=== PATIENT | male | born 1980 | race Caucasian/White ===

== ENCOUNTER 2018-04-17 00:26 | Emergency (ER) | payer SELFPAY ==
[~2018-04-17] VITALS: Ht 172.7 cm; Wt 72.6 kg
--- OUTSIDE RECORDS SUMMARY | 2018-04-17 00:30 | XMS REPORT | Continuity of Care Document ---
Author Author [facility] Address Unknown Phone Unavailable Allergies Active Description Code Type Severity Reaction Onset Reported/Identified Relationship to Patient Clinical Status Yes NO NAME AVAILABLE [id number] DRUG N/ A N/A Yes NKA NKA Drug Allergy N/A N/A Confirmed or Verified Medications There is no data. Problems Date Dx Coded Attending Type Code Diagnosis Diagnosed By 12/02/2015 Afia Vásquez R10.84 Generalized Abdominal Pain 04/28/2016 ADOLPH PALACIOS V [id number] Rash ADOLPH PALACIOS 04/28/2016 ADOLPH PALACIOS V B02.9 Zoster without complications ADOLPH PALACIOS Procedures There is no data. Results There is no data. Encounters ACCT No. Visit Date/Time Discharge Status Pt. Type Provider Facility Loc./Unit Complaint [id number] 04/28/2016 20:25:47 04/28/2016 21:06:00 DIS Emergency ADOLPH PALACIOS [facility] [id number] 11/25/2015 06:57:00 11/25/2015 23:59:59 CLS Emergency Afia Vásquez [facility] ABD pain [id number] 11/25/2015 06:57:00 11/25/2015 09:10:00 DIS Emergency Afia Vásquez [facility] abd pain [id number] 11/25/2015 07:05:00 11/25/2015 07:05:00 CAN Emergency Afia Vásquez [facility] abdominal pain, nausea , vomiting
[2018-04-17] MEDS ORDERED: LACTATED RINGERS 1,000 ML IV ONE (02:10)
[2018-04-17] MEDS ORDERED: SCOPOLAMINE 1.5 MG (TRANSDERM-SCOP) PATCH TD ONE (02:15)
[2018-04-17] MEDS ORDERED: ONDANSETRON 4 MG/2 ML (SDV) Z0FRAN IVP ONE (02:15)
[2018-04-17] MEDS ORDERED: PANTOPRAZOLE 40 MG (PROTONIX) VIAL IV ONE (02:15)
[2018-04-17 02:21] LABS: BASOPHILS % (AUTO) 0 % (0-10); EOSINOPHILS % (AUTO) 0 % (0-10); HEMATOCRIT 43 % (40-54); HEMOGLOBIN 14.6 G/DL (13.3-17.7); LYMPHOCYTES # (AUTO) 2.3 X 10^3 (1.0-4.0); LYMPHOCYTES % (AUTO) 16 % (12-44); MEAN CORPUSCULAR HEMOGLOBIN 32 PG (25-34); MEAN CORPUSCULAR HGB CONC 34 G/DL (32-36); MEAN CORPUSCULAR VOLUME 92 FL (80-99); MEAN PLATELET VOLUME 10.3 FL (7.4-10.4); MONOCYTES # (AUTO) 1.2 X 10^3 (0.0-1.0); MONOCYTES % (AUTO) 8 % (0-12); NEUTROPHILS # (AUTO) 10.7 X 10^3 (1.8-7.8); NEUTROPHILS % (AUTO) 76 % (42-75); PLATELET COUNT 341 10^3/uL (130-400); RED BLOOD COUNT 4.64 10^6/uL (4.35-5.85); WHITE BLOOD COUNT 14.2 10^3/uL (4.3-11.0)
[2018-04-17 02:35] LABS: INR 1.1 (0.8-1.4); PROTHROMBIN TIME PATIENT 13.9 SEC (12.2-14.7)
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
[2018-04-17 02:41] LABS: ALANINE AMINOTRANSFERASE 25 U/L (0-55); ALBUMIN 4.9 GM/DL (3.2-4.5); ALKALINE PHOSPHATASE 59 U/L (40-136); AMYLASE 74 U/L (25-125); BILIRUBIN,TOTAL 1.2 MG/DL (0.1-1.0); BUN/CREATININE RATIO 10; CALCIUM 9.9 MG/DL (8.5-10.1); CARBON DIOXIDE 22 MMOL/L (21-32); CHLORIDE 103 MMOL/L (98-107); CREATININE SERUM 0.81 MG/DL (0.60-1.30); GFR ESTIMATED > 60; GLUCOSE 122 MG/DL (70-105); LIPASE 40 U/L (8-78); MAGNESIUM 2.7 MG/DL (1.8-2.4); POTASSIUM 3.5 MMOL/L (3.6-5.0); SODIUM 139 MMOL/L (135-145)
[2018-04-17 02:47] LABS: ACETAMINOPHEN < 10 UG/ML (10-30); LYMPHOCYTES % (MANUAL) 17 %; NEUTROPHILS % (MANUAL) 76 %
[2018-04-17 02:48] LABS: MONOCYTES % (MANUAL) 7 %
[2018-04-17] MEDS ORDERED: IOHEXOL 350 MG/ML 100 ML (OMNIPAQUE 350) VIAL IV ONE (03:30)
[2018-04-17] MEDS ORDERED: NS 250 ML (IVPB) BAG IV ONE (03:30)
[2018-04-17 04:04] LABS: BILIRUBIN,URINE NEGATIVE (NEGATIVE); CLARITY,URINE CLEAR; COLOR,URINE YELLOW; GLUCOSE, URINE (UA) NEGATIVE (NEGATIVE); KETONES,URINE 4+ (NEGATIVE); LEUKOCYTE ESTERASE ,URINE NEGATIVE (NEGATIVE); NITRITE,URINE NEGATIVE (NEGATIVE); PH,URINE 8 (5-9); PROTEIN,URINE 1+ (NEGATIVE); UROBILINOGEN,URINE NORMAL (NORMAL)
[2018-04-17 04:11] LABS: AMORPHOUS SEDIMENT,UR FEW AMOR PHOSPHATE /LPF; BACTERIA,URINE FEW /HPF; SQUAMOUS EPITHELIAL CELL,UR 0-2 /HPF
[2018-04-17 04:14] LABS: AMPHETAMINE SCREEN, URINE NEGATIVE (NEGATIVE); BARBITURATE SCREEN URINE NEGATIVE (NEGATIVE); BENZODIAZEPINES SCREEN URINE NEGATIVE (NEGATIVE); CANNABINOID SCREEN, URINE POSITIVE (NEGATIVE); COCAINE SCREEN URINE POSITIVE (NEGATIVE); METHADONE STAT NEGATIVE (NEGATIVE); METHAMPHETAMINE SCREEN URINE S NEGATIVE (NEGATIVE); OPIATE SCREEN URINE NEGATIVE (NEGATIVE); OXYCODONE STAT NEGATIVE (NEGATIVE); PROPOXYPHENE STAT NEGATIVE (NEGATIVE); TRICYCLIC ANTIDEPRESSANTS SCRE NEGATIVE (NEGATIVE)
[2018-04-17 04:20] VITALS: BP 131/79
--- NOTE | 2018-04-17 07:20 | Diagnostic Imaging Report ---
PROCEDURE: CT abdomen and pelvis with contrast. TECHNIQUE: Multiple contiguous axial images were obtained through the abdomen and pelvis after administration of intravenous contrast. INDICATION: Abdominal pain with nausea and vomiting. History of a cholecystectomy. EXAMINATION: CT abdomen and pelvis with contrast 04/17/2018. COMPARISON: None. FINDINGS: Mild fatty infiltration throughout the liver is noted. No focal masses or lesions appreciated. There is evidence of a previous cholecystectomy. The spleen and pancreas are unremarkable. The adrenal glands unremarkable. The kidneys demonstrate no acute disease. Mild prominence of the distal esophagus most likely on the basis of a very small hiatal hernia. There is no free fluid in the abdomen. No free air. Within the pelvis free fluid is noted which is of uncertain etiology. This is abnormal in a male and clinical correlation and followup recommended. The appendix is unremarkable without surrounding inflammatory change appreciated. A few clips are noted within the mid lower abdomen. There is no focal inflammatory change about the bowel loops although there is minimal wall thickening throughout the descending colon and sigmoid. Most likely this is due to underdistention although a focal colitis is also in the differential correlate with symptoms. No free fluid seen in the abdomen nor pelvis. No acute osseous abnormalities appreciated. The visualized lung bases demonstrate a small nodularity in the periphery of the left lung base pleural-based and nonspecific. This is approximately 6.5 mm in size. A short-term interval followup in approximately 3 months could be performed to assure stability especially in patient, who has smoking history. IMPRESSION: 1. Free fluid in pelvis which is nonspecific finding, correlate clinically. Questionable mild wall thickening along the colon on the left as described which is most likely on the basis of underdistention however a focal nonspecific colitis is also in the differential, correlate with symptoms. 2. Remaining abdomen and pelvis demonstrates incidental findings as discussed above. 3. Small nodule in the visualized left lung base followup as noted above. Pertinent findings agree with the preliminary report. Dictated by: Dictated on workstation # [id number]
== END 2018-04-17 04:20 | disposition home or self-care (01) ==
LOC: ER 00:27
DX: R10.84 Generalized abdominal pain (principal); G89.29 Other chronic pain; R11.2 Nausea with vomiting, unspecified; F14.10 Cocaine abuse, uncomplicated; F12.10 Cannabis abuse, uncomplicated; F10.10 Alcohol abuse, uncomplicated; F17.210 Nicotine dependence, cigarettes, uncomplicated
CPT/HCPCS: 36415; 74177; 80053; 80306; 80320; 80329; 81000; 82150; 83690; 83735; 85007; 85027; 85610; 85730; 93005; 93041

== ENCOUNTER 2018-12-16 02:10 | Emergency (ER) | payer OTHER ==
[~2018-12-16] VITALS: Ht 172.7 cm; Wt 70.3 kg
[2018-12-16 02:34] VITALS: BP 126/86
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
== END 2018-12-16 02:40 ==
LOC: EDUNIT# 02:10 → ER FS 02:13
DX: S81.011A Laceration without foreign body, right knee, initial encounter (principal); S80.212A Abrasion, left knee, initial encounter; S40.812A Abrasion of left upper arm, initial encounter; R40.2142 Coma scale, eyes open, spontaneous, at arrival to emergency department; R40.2252 Coma scale, best verbal response, oriented, at arrival to emergency department; R40.2362 Coma scale, best motor response, obeys commands, at arrival to emergency department; F12.10 Cannabis abuse, uncomplicated; F14.10 Cocaine abuse, uncomplicated; F17.210 Nicotine dependence, cigarettes, uncomplicated; W01.0XXA Fall on same level from slipping, tripping and stumbling without subsequent striking against object, initial encounter

== ENCOUNTER 2021-07-01 16:14 | Emergency (ER) | payer SELFPAY ==
--- OUTSIDE RECORDS SUMMARY | 2021-07-01 16:20 | XMS REPORT | Clinical Summary ---
Author Author [facility] Address Unknown Phone Unavailable Care Team Providers Care Salvager Name Role Phone PP Unavailable Allergies Not on File Medications Not on file Active Problems Not on file Social History Date Tobacco Use Types Packs/Day Years Used Never Assessed Sex Assigned at Date Recorded Not on file Plan of Treatment Not on file Results Not on filefrom Last 3 Months
--- OUTSIDE RECORDS SUMMARY | 2021-07-01 16:20 | XMS REPORT | Clinical Summary ---
Author Author [facility] Organization [facility] Address Unknown Phone Unavailable Care Team Providers Care Vice President Safety Name Role Phone Jose Weiss MD Unavailable No Pcp, Na PCP Unavailable Lisa Tom RN Unavailable Unavailable Simona Grayson RN Unavailable Unavailable Pieter Yip MD Unavailable Unavailable Leonor Linn RN Unavailable Unavailable Pieter Gordon MD Unavailable Source Comments Some departments are not documenting in the electronic medical record. If you d o not see the information that you expected, contact Release of Information in [facility] Information Management department at [phone] for further assistan ce in locating additional records.[facility] Allergies No known active allergies Medications End Date Status Medication Sig Dispensed Refills Start Date Active hyoscyamine (LEVSIN) Take 125 mcg 0 0.125 mg tablet by mouth every 4 hours as needed. Active colesevelam(+) (WELCHOL) Take 1,875 mg 0 625 mg tablet by mouth twice daily with meals. Active sucralfate (CARAFATE) 1 Take 1 g by 0 gram tablet mouth four times daily. Active pantoprazole DR Take 20 mg by 0 (PROTONIX) 20 mg tablet mouth twice daily. Active polyethylene glycol 3350 Take 17 g by 0 (MIRALAX) 17 g packet mouth daily. Active ALPRAZolam (XANAX) 0.25 Take 0.25 mg 0 mg tablet by mouth at bedtime as needed. Active ondansetron (ZOFRAN) 4 mg Take 1 Tab by 30 Tab 1 tabletIndications: mouth every 6 4 Abdominal pain in male, hours as Nausea & vomiting needed for Nausea. Active promethazine (PHENERGAN) Insert or 12 Each 2 1 2/02/201 25 mg rectal Apply 1 4 suppositoryIndications: Suppository Abdominal pain in male, to rectal Nausea & vomiting area as directed every 6 hours as needed for Nausea. Active citalopram (CELEXA) 20 mg Take 1 Tab by 30 Tab 5 tabletIndications: mouth daily. 5 Anxiety Active Problems Problem Noted Date Cannabis abuse 09/08/2014 Abdominal pain in male 06/18/2014 Nausea & vomiting 06/18/2014 Surgical History Surgery Date Site/Laterality Comments HX CHOLECYSTECTOMY Social History Date Tobacco Use Types Packs/Day Years Used Current Every Day Smoker 0.5 Comments Alcohol Use Standard Drinks/Week No 0 (1 standard drink = 0.6 o z pure alcohol) Sex Assigned at Date Recorded Not on file Last Filed Vital Signs Reading Time Taken Comments Vital Sign 105/63 09/03/2014 12:34 PM GEOLOGIST [facility] Blood Pressure 71 09/03/2014 12:34 PM GEOLOGIST [facility] Pulse 36.7 C (98 F) 09/03/2014 12:34 PM GEOLOGIST [facility] Temperature 16 09/03/2014 12:34 PM GEOLOGIST [facility] Respiratory Rate 100% 08/22/2014 11:05 AM GEOLOGIST [facility] Oxygen Saturation - - Inhaled Oxygen Concentration 70.8 kg (156 lb) 09/03/2014 12:34 PM GEOLOGIST [facility] Weight 172.7 cm (5' 8") 09/03/2014 12:34 PM GEOLOGIST [facility] Height 23.72 09/03/2014 12:34 PM GEOLOGIST [facility] Body Mass Index Plan of Treatment Health Maintenance Due Date Last Done Comments HIV SCREENING 1995 DTAP/TDAP VACCINES (1 - 1998 Tdap) HEPATITIS C SCREENING 1998 PHYSICAL (COMPREHENSIVE) 1998 EXAM INFLUENZA VACCINE 02/15/2021 Results Not on filefrom Last 3 Months Insurance Type Payer Benefit Subscriber ID Effective Phone Address Plan / Dates Group PPO BCBS CANDICE BCBS CANDICE [id number] 2013-P [phone] [address] [facility] [id number] [place] [address] [phone] Advance Directives Patient Stacker Explanation Type Date Recorded Advance 08/08/2014 1:40 PM Directive/DPOA Care Teams Start Date End Date Vice President Safety Relationship Specialty 07/30/14 No Pcp, Na PCP - General 06/17/14 Jose Weiss MD Internal [address] [address] 08/02/14 Lisa Tom, RN 08/20/14 Simona Grayson, RN 08/28/14 Pieter Yip MD Gastroentero logy 05/05/15 Leonor Linn, RN 08/28/15 Pieter Gordon MD Gastroentero [address] [facility] [address] [place] [address]
--- OUTSIDE RECORDS SUMMARY | 2021-07-01 16:20 | XMS REPORT | Clinical Summary ---
Author Author [facility] Address Unknown Phone Unavailable Care Team Providers Care Oracle Reports Developer Name Role Phone PCP Unavailable Allergies No known active allergies Medications End Date Status Medication Sig Dispensed Refills Start Date Active sucralfate (CARAFATE) 1 G Take 1 g by 0 tablet mouth 4 (four) times daily. Active hydrocodone-acetaminophen Take 1 tablet 20 tablet 0 (NORCO) 5-325 MG by mouth 6 every 6 (six) hours as needed for Moderate Pain. Do not exceed a daily dose of 4 tablets Active Problems Not on file Social History Date Tobacco Use Types Packs/Day Years Used Current Every Day Smoker 1 Comments Alcohol Use Standard Drinks/Week No 0 (1 standard drink = 0.6 o z pure alcohol) Sex Assigned at Date Recorded Not on file Last Filed Vital Signs Reading Time Taken Comments Vital Sign 100/66 04/28/2016 8:09 PM CDT Blood Pressure 82 04/28/2016 8:09 PM CDT Pulse 37.1 C (98.8 F) 04/28/2016 8:09 PM CDT Temperature 18 04/28/2016 8:09 PM CDT Respiratory Rate 98% 04/28/2016 8:09 PM CDT Oxygen Saturation - - Inhaled Oxygen Concentration 70.3 kg (155 lb) 04/28/2016 8:09 PM CDT Weight 172.7 cm (5' 8") 04/28/2016 8:09 PM CDT Height 23.57 04/28/2016 8:09 PM CDT Body Mass Index Plan of Treatment Health Maintenance Due Date Last Done Comments Varicella Vaccines (1 of 1981 2 - 2-dose childhood series) COVID-19 Vaccine (1) 1985 Hepatitis C Screening 1998 DTaP,Tdap,and Td Vaccines 1999 (1 - Tdap) MMR Vaccines-Adult 1999 Influenza Vaccine (#1) 2021 Pneumo-Vaccine: 65+Yrs (1 2045 of 1 - PPSV23) HIB Vaccines Aged Out No longer eligible based on patient's age to complete this topic IPV Vaccines Aged Out No longer eligible based on patient's age to complete this topic Meningococcal Vaccine Aged Out No longer eligib le based on patient's age to complete this topic Pneumo-Vaccine: Peds (0-5 Aged Out No longer el igible based on patient's age to Yrs) & At-Risk Patients complete this topic (6-64 Yrs) Rotavirus Vaccines Aged Out No longer eligible based on patient's age to complete this topic Results Not on filefrom Last 3 Months Advance Directives For more information, please contact: [phone] Patient Safety Analyst Explanation Type Date Recorded Advance Directives and Living Will Power of Personal Chef
--- NOTE | 2021-07-01 16:57 | ED General ---
General Chief Complaint: Cough/Cold/Flu Symptoms Stated Complaint: SOA,CP,CONGESTION Source of Information: Patient History of Present Illness Date Seen by Provider: Jul 01, 2021 Time Seen by Provider: 16:28 Initial Comments 41-year-old male presents with complaints of sinus congestion and drainage. 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 He is unsure if he had inhaled some of that and it was causing issues for him. He also was concerned that the weather changes might be contributing to some sinus congestion and drainage making him not feel well. His cousin was diagnosed with influenza A within the last few days and he has been around that cousin, so he is concerned that he might also have influenza A. He has had some mild nonproductive cough. He quit smoking 43 days ago. He denies any abdominal pain, nausea, vomiting, diarrhea, constipation, pain with urination. He denies fever or chills. He reports just that he feels "crappy" and was not sure if he had pneumonia or influenza or what might be causing his symptoms. Timing/Duration: 1-2 Days Severity: Moderate Associated Systoms: No Chest Pain; Cough; No Diaphoresis, No Fever/Chills; Headaches (Sinus pressure); No Loss of Appetite; Malaise; No Nausea/Vomiting, No Rash, No Seizure, No Shortness of Air, No Syncope, No Weakness Allergies and Home Medications Allergies Coded Allergies: No Known Drug Allergies (Unverified , 04/17/18) Patient Home Medication List Home Medication List Reviewed: Yes Review of Systems Review of Systems Constitutional: see HPI; No chills, No dizziness, No fever EENTM: nose congestion; No ear discharge, No hearing loss, No ear pain, No blurred vision, No hoarseness, No epistaxis, No throat pain Respiratory: cough; No hemoptysis; phlegm; No stridor, No wheezing Cardiovascular: No chest pain, No edema, No palpitations Gastrointestinal: No abdominal pain, No nausea, No vomiting Genitourinary: No decreased output, No dysuria Musculoskeletal: other (Generalized body aches) Skin: No rash Psychiatric/Neurological: Headache (Sinus headache) Hematologic/Lymphatic: Denies Blood Clots Immunological/Allergic: grass allergy, pollen allergy Past Hjhxufd-Fyvmxj-Stqtjt Hx Patient Social History Tobacco Use?: No Smoking Status: Former Smoker (Reports quitting 43 days prior to being seen July 01, 2021) Seasonal Allergies Seasonal Allergies: No Past Medical History Surgeries: Yes Gallbladder Respiratory: No Cardiac: No Neurological: No Genitourinary: No Gastrointestinal: Yes (CHRONIC NAUSEA/VOMITING/ABDOMINAL PAIN ) Musculoskeletal: No Endocrine: No HEENT: No Cancer: No Psychosocial: No Integumentary: No Blood Disorders: No Adverse Reaction/Blood Tranf: No Physical Exam Vital Signs Vital Signs - First Documented 07/01/21 07/01/21 16:14 18:08 Temp 36.9 Pulse 84 Resp 16 B/P (MAP) 131/82 (98) Pulse Ox 98 O2 Delivery Room Air Capillary Refill : Height, Weight, BMI Height: 5'8.00" Weight: 155lbs. oz. [id number]; BMI Method:Stated General Appearance: No Apparent Distress, WD/WN Eyes: Bilateral Eye PERRL, Bilateral Eye EOMI HEENT: PERRL/EOMI, TMs Normal, Moist Mucous Membranes, Pharyngeal Erythema; No Photophobia, No Tonsillar Exudate Neck: Full Range of Motion, Normal Inspection, Non Tender, Supple Respiratory: Chest Non Tender, Lungs Clear, Normal Breath Sounds, No Accessory Muscle Use, No Respiratory Distress Cardiovascular: Regular Rate, Rhythm, Normal Peripheral Pulses Gastrointestinal: Normal Bowel Sounds, No Pulsatile Mass, Non Tender, Soft Rectal: Deferred Back: No CVA Tenderness, No Vertebral Tenderness Extremity: Normal Capillary Refill, Normal Inspection, No Pedal Edema Neurologic/Psychiatric: Alert, Oriented x3, No Motor/Sensory Deficits, psychology intern II- XII Norm as Tested Skin: Normal Color, Warm/Dry Progress/Results/Core Measures Suspected Sepsis SIRS Temperature: Pulse: Respiratory Rate: Laboratory Tests 07/01/21 16:58: White Blood Count 8.3 Blood Pressure / Mean: Laboratory Tests 07/01/21 16:58: Creatinine 0.72, Platelet Count 356, Total Bilirubin 0.2 Results/Orders Lab Results Laboratory Tests Test 07/01/21 16:54 07/01/21 16:58 Range/Units Influenza Type A Antigen NEGATIVE NEGATIVE Influenza Type B Antigen NEGATIVE NEGATIVE White Blood Count 8.3 4.3-11.0 10^3/uL Red Blood Count 4.18 L 4.30-5.52 10^6/uL Hemoglobin 13.4 13.3-17.7 g/dL Hematocrit 39 L 40-54 % Mean Corpuscular Volume 93 80-99 fL Mean Corpuscular Hemoglobin 32 25-34 pg Mean Corpuscular Hemoglobin Concent 35 32-36 g/dL Red Cell Distribution Width 12.2 10.0-14.5 % Platelet Count 356 130-400 10^3/uL Mean Platelet Volume 9.6 9.0-12.2 fL Immature Granulocyte % (Auto) 0 % Neutrophils (%) (Auto) 59 42-75 % Lymphocytes (%) (Auto) 26 12-44 % Monocytes (%) (Auto) 11 0-12 % Eosinophils (%) (Auto) 4 0-10 % Basophils (%) (Auto) 1 0-10 % Neutrophils # (Auto) 4.8 1.8-7.8 X 10^3 Lymphocytes # (Auto) 2.1 1.0-4.0 X 10^3 Monocytes # (Auto) 0.9 0.0-1.0 X 10^3 Eosinophils # (Auto) 0.3 0.0-0.3 10^3/uL Basophils # (Auto) 0.1 0.0-0.1 10^3/uL Immature Granulocyte # (Auto) 0.0 0.0-0.1 10^3/uL Sodium Level 138 135-145 MMOL/L Potassium Level 4.0 3.6-5.0 MMOL/L Chloride Level 103 98-107 MMOL/L Carbon Dioxide Level 26 21-32 MMOL/L Anion Gap 9 5-14 MMOL/L Blood Urea Nitrogen 9 7-18 MG/DL Creatinine 0.72 0.60-1.30 MG/DL Estimat Glomerular Filtration Rate 120 BUN/Creatinine Ratio 13 Glucose Level 102 70-105 MG/DL Calcium Level 8.9 8.5-10.1 MG/DL Corrected Calcium 8.7 8.5-10.1 MG/DL Total Bilirubin 0.2 0.1-1.0 MG/DL Aspartate Amino Transf (AST/SGOT) 18 5-34 U/L Alanine Aminotransferase (ALT/SGPT) 16 0-55 U/L Alkaline Phosphatase 75 40-136 U/L C-Reactive Protein 0.42 <0.50 MG/DL Total Protein 7.3 6.4-8.2 GM/DL Albumin 4.3 3.2-4.5 GM/DL My Orders Orders - CLARENCE DYER MD Ed Iv/Invasive Line Start (07/01/21 16:52) Cbc With Automated Diff (07/01/21 16:52) Comprehensive Metabolic Panel (07/01/21 16:52) Crp Fs (07/01/21 16:52) Ns Iv 1000 Ml (Sodium Chloride 0.9%) (07/01/21 17:00) Covid 19 Inhouse Test (07/01/21 16:52) Influenza A & B Antigens (07/01/21 16:52) Chest 1 View Ap/Pa Only (07/01/21 16:52) Vital Signs/I&O 07/01/21 07/01/21 16:14 18:08 Temp 36.9 36.9 Pulse 84 83 Resp 16 16 B/P (MAP) 131/82 (98) 123/78 Pulse Ox 98 100 O2 Delivery Room Air Capillary Refill : Progress Note #1: Progress Note Obtain basic labs as well as chest x-ray and swab for influenza and Covid. Try giving IV fluids for hydration to see if that helps him feel little bit better. Progress Note #2: Progress Note Chest x-ray does not show any acute process. His influenza swab was negative. His labs are stable without acute significant abnormality to account for his symptoms. Encouraged to continue pushing fluids and hydration. Counseled on symptomatic treatment for sinus congestion and pressure. Advised to use humidifier at the bedside while sleeping, Mucinex to help loosen congestion and help with drainage. Advised that the Covid swab would take at least 12 to 24 hours to come back and he should be off work until Tuesday so he has time to get the results of the swab. If it does come back positive he should be off until the . Diagnostic Imaging Diagonstic Imaging: Xray Plain Films/CT/US/NM/MRI: chest Comments [facility] [place], [place] NAME: BELA PIRES Bartolo [facility] REC#: [id number] PT STATUS: REG ER : 1980 PHYSICIAN: CLARENCE DYER MD ADMIT DATE: 07/01/21/ER FS Signed Date of Exam:07/01/21 CHEST 1 VIEW AP/PA ONLY EXAMINATION: Chest 1 view HISTORY: Cough. COMPARISON: None available. FINDINGS: The lung volumes are normal. No focal consolidation is seen. No large pleural effusion or pneumothorax is seen. The cardiomediastinal silhouette is normal in size and contour. No acute osseous abnormality is seen. IMPRESSION: 1. No acute pleuroparenchymal process. Dictated by: Dictated on workstation # [id number] Dict: 07/01/21 1709 Trans: 07/01/211712 CV [id number] Interpreted by: DUARTE ALGERIA DO Electronically signed by: DUARTE ALEGRIA DO 07/01/21 1713 Reviewed: Reviewed by Me Departure Impression Primary Impression: Upper respiratory infection with cough and congestion Additional Impression: Person under investigation for COVID-19 Disposition: 01 HOME, SELF-CARE Condition: Stable Departure-Patient Inst. Decision time for Depature: 17:50 Referrals: NO,LOCAL PHYSICIAN (PCP) Primary Care Physician [facility] Patient Instructions: COVID-19 ED, Upper Respiratory Infection ED Add. Discharge Instructions: You should quarantine and stay isolated until the results of your Covid test are known. This can take up to 24 hours. If your test comes back positive you should stay in quarantine for 10 days. If it is negative then you should stay in quarantine until your symptoms have resolved. Push fluids and stay well-hydrated. Use acetaminophen and ibuprofen if needed for body aches and pain. You could call the [facility] clinic at [phone] to get established with a primary care provider for follow up All discharge instructions reviewed with patient and/or family. Voiced understanding. Work/School Note: Work Release Form Date Seen in the Emergency Department: Jul 01, 2021 Return to Work: Jul 03, 2021 Restrictions: Return-No Fever (24hrs) Other Restrictions Listed Below: If Covid Neg. return Jul 03, if Pos. return Jul 13 CLARENCE DYER MD Jul 01, 2021 16:57
[2021-07-01] MEDS ORDERED: NS IV 1000 ML 1,000 ML IV SCH (17:00)
[2021-07-01 17:06] LABS: WHITE BLOOD COUNT 8.3 10^3/uL (4.3-11.0)
[2021-07-01 17:07] LABS: BASOPHILS % (AUTO) 1 % (0-10); EOSINOPHILS % (AUTO) 4 % (0-10); HEMATOCRIT 39 % (40-54); HEMOGLOBIN 13.4 g/dL (13.3-17.7); LYMPHOCYTES # (AUTO) 2.1 X 10^3 (1.0-4.0); LYMPHOCYTES % (AUTO) 26 % (12-44); MEAN CORPUSCULAR HEMOGLOBIN 32 pg (25-34); MEAN CORPUSCULAR HGB CONC 35 g/dL (32-36); MEAN CORPUSCULAR VOLUME 93 fL (80-99); MEAN PLATELET VOLUME 9.6 fL (9.0-12.2); MONOCYTES # (AUTO) 0.9 X 10^3 (0.0-1.0); MONOCYTES % (AUTO) 11 % (0-12); NEUTROPHILS # (AUTO) 4.8 X 10^3 (1.8-7.8); NEUTROPHILS % (AUTO) 59 % (42-75); PLATELET COUNT 356 10^3/uL (130-400)
[2021-07-01 17:08] LABS: BASOPHILS # (AUTO) 0.1 10^3/uL (0.0-0.1); EOSINOPHILS # (AUTO) 0.3 10^3/uL (0.0-0.3)
--- NOTE | 2021-07-01 17:10 | Diagnostic Imaging Report ---
EXAMINATION: Chest 1 view HISTORY: Cough. COMPARISON: None available. FINDINGS: The lung volumes are normal. No focal consolidation is seen. No large pleural effusion or pneumothorax is seen. The cardiomediastinal silhouette is normal in size and contour. No acute osseous abnormality is seen. IMPRESSION: 1. No acute pleuroparenchymal process. Dictated by: Dictated on workstation # [id number]
[2021-07-01 17:26] LABS: CREATININE SERUM 0.72 MG/DL (0.60-1.30)
[2021-07-01 17:27] LABS: ALBUMIN 4.3 GM/DL (3.2-4.5); BILIRUBIN,TOTAL 0.2 MG/DL (0.1-1.0); CALCIUM 8.9 MG/DL (8.5-10.1); TOTAL PROTEIN 7.3 GM/DL (6.4-8.2)
[2021-07-01 18:08] VITALS: BP 123/78
== END 2021-07-01 18:10 | disposition home or self-care (01) ==
LOC: EDUNIT# 16:14 → ER FS 16:15
DX: J06.9 Acute upper respiratory infection, unspecified (principal); Z20.822 Contact with and (suspected) exposure to COVID-19; Z87.891 Personal history of nicotine dependence
CPT/HCPCS: 36415; 71045; 80053; 85025; 86141; 87636; 87804

== ENCOUNTER 2023-04-22 14:41 | Emergency (ER) | payer SELFPAY ==
[2023-04-22 14:50] VITALS: BP 132/94
[2023-04-22] MEDS ORDERED: ONDANSETRON INJECTION 4 MG/2 ML (SDV) ONE ×2 (14:58→15:02)
[2023-04-22] MEDS ORDERED: NS IV 1000 ML 1,000 ML ONE (14:58)
[2023-04-22] MEDS ORDERED: NS IV 1000 ML 1,000 ML IV SCH ×2 (15:00→15:30)
[2023-04-22] MEDS ORDERED: ONDANSETRON INJECTION 4 MG/2 ML (SDV) IVP ONE (15:00)
[2023-04-22 15:03] LABS: BASOPHILS # (AUTO) 0.1 10^3/uL (0.0-0.1); BASOPHILS % (AUTO) 1 % (0-10); EOSINOPHILS # (AUTO) 0.2 10^3/uL (0.0-0.3); EOSINOPHILS % (AUTO) 1 % (0-10); HEMATOCRIT 47 % (40-54); HEMOGLOBIN 16.1 g/dL (13.3-17.7); LYMPHOCYTES # (AUTO) 3.6 10^3/uL (1.0-4.0); LYMPHOCYTES % (AUTO) 19 % (12-44); MEAN CORPUSCULAR HEMOGLOBIN 31 pg (25-34); MEAN CORPUSCULAR HGB CONC 34 g/dL (32-36); MEAN CORPUSCULAR VOLUME 91 fL (80-99); MEAN PLATELET VOLUME 10.2 fL (9.0-12.2); MONOCYTES % (AUTO) 5 % (0-12); NEUTROPHILS # (AUTO) 14.3 10^3/uL (1.8-7.8); NEUTROPHILS % (AUTO) 75 % (42-75); PLATELET COUNT 422 10^3/uL (130-400); WHITE BLOOD COUNT 19.2 10^3/uL (4.3-11.0)
[2023-04-22 15:18] LABS: ALANINE AMINOTRANSFERASE 42 U/L (0-55); ALBUMIN 5.6 GM/DL (3.2-4.5); ALKALINE PHOSPHATASE 123 U/L (40-136); BILIRUBIN,TOTAL 0.4 MG/DL (0.1-1.0); BUN/CREATININE RATIO 9; CARBON DIOXIDE 19 MMOL/L (21-32); CHLORIDE 105 MMOL/L (98-107); CREATININE SERUM 0.87 MG/DL (0.60-1.30); GFR ESTIMATED 110; GLUCOSE 149 MG/DL (70-105); LIPASE 39 U/L (8-78); POTASSIUM 3.6 MMOL/L (3.6-5.0); SODIUM 145 MMOL/L (135-145); TOTAL PROTEIN 9.2 GM/DL (6.4-8.2)
[2023-04-22] MEDS ORDERED: fentaNYL INJECTION 100 MCG/2 ML VIAL IVP ONE (15:30)
[2023-04-22 15:45] LABS: MAGNESIUM 2.3 MG/DL (1.6-2.4)
--- NOTE | 2023-04-22 16:06 | Diagnostic Imaging Report ---
PROCEDURE: CT abdomen and pelvis without contrast. TECHNIQUE: Multiple contiguous axial images were obtained through the abdomen and pelvis without the use of intravenous contrast. Auto Exposure Controls were utilized during the CT exam to meet ALARA standards for radiation dose reduction. INDICATION: Vomiting. COMPARISON: Correlation is made with prior CT from 04/17/2018. FINDINGS: Lung bases are clear. The liver is unremarkable apart from a tiny low-attenuation lesion in the left lobe, too small to characterize. The gallbladder is surgically absent. There is no biliary ductal dilatation. Pancreas and spleen are unremarkable. No adrenal mass is detected. Kidneys are without calculi or hydronephrosis. Aorta is nonaneurysmal. The small and large bowel loops are normal in caliber. Appendix is unremarkable. No free fluid or fluid collection is seen. No inflammatory changes are identified. The bladder and prostate are unremarkable. IMPRESSION: Unremarkable noncontrast CT of the abdomen and pelvis. No acute abnormality is detected. Dictated by: Dictated on workstation # [id number]
[2023-04-22 16:10] LABS: LYMPHOCYTES % (MANUAL) 21 %; MONOCYTES % (MANUAL) 1 %; NEUTROPHILS % (MANUAL) 78 %
[2023-04-22 16:56] LABS: HEMATOCRIT 42 % (40-54); HEMOGLOBIN 13.9 g/dL (13.3-17.7); MEAN CORPUSCULAR HEMOGLOBIN 31 pg (25-34); MEAN CORPUSCULAR HGB CONC 33 g/dL (32-36); MEAN CORPUSCULAR VOLUME 94 fL (80-99); MEAN PLATELET VOLUME 10.4 fL (9.0-12.2); PLATELET COUNT 311 10^3/uL (130-400); WHITE BLOOD COUNT 24.4 10^3/uL (4.3-11.0)
[2023-04-22 16:59] LABS: BILIRUBIN,URINE NEGATIVE (NEGATIVE); CLARITY,URINE CLEAR; COLOR,URINE YELLOW; GLUCOSE, URINE (UA) NEGATIVE (NEGATIVE); KETONES,URINE 1+ (NEGATIVE); LEUKOCYTE ESTERASE ,URINE NEGATIVE (NEGATIVE); NITRITE,URINE NEGATIVE (NEGATIVE); PH,URINE 8.5 (5-9); PROTEIN,URINE TRACE (NEGATIVE)
[2023-04-22] MEDS ORDERED: PROCHLORPERAZINE INJ 10 MG/2ML VIAL IV ONE (17:00)
[2023-04-22 17:03] LABS: BACTERIA,URINE LARGE /HPF
--- NOTE | 2023-04-22 17:09 | ED GI ---
General Chief Complaint: Abdominal/GI Problems Stated Complaint: VOMITING; FEVER Nursing Triage Note: PT REPORTS HE STARTED VIOLENTLY VOMITING AFTER SMOKING MARIJUANA. HE HAD QUIT SMOKING BUT TRIED IT TODAY AGAIN BECAUSE HE USED TO GET SICK FROM IT IN THE PAST. Source of Information: Patient, Family, RN Notes Reviewed History of Present Illness Date Seen by Provider: Apr 22, 2023 Time Seen by Provider: 14:54 Initial Comments 43-year-old male patient with history of marijuana induced vomiting presented POV with complaining of episode of nausea and vomiting since this morning. Patient stated he had 7 episodes of nonbloody vomiting since this morning and complaining of epigastric sharp pain and rated his pain 10/10. Patient complaining of chills and decrease of urine output Patient denies diarrhea, decrease of urine output, sick contact, chest pain and shortness of breath, sick contact. Patient stated he used to get episodes of vomiting with using marijuana and quit using marijuana but today started using marijuana again and had episodes of vomiting. Patient is anxious. Allergies and Home Medications Allergies Coded Allergies: No Known Drug Allergies (Unverified , 04/17/18) Patient Home Medication List Home Medication List Reviewed: Yes Review of Systems Review of Systems Constitutional: see HPI EENTM: No Symptoms Reported Respiratory: No Symptoms Reported Cardiovascular: No Symptoms Reported Gastrointestinal: See HPI Genitourinary: No Symptoms Reported Musculoskeletal: no symptoms reported Skin: no symptoms reported Psychiatric/Neurological: See HPI Endocrine: No Symptoms Reported Hematologic/Lymphatic: No Symptoms Reported All Other Systems Reviewed Negative Unless Noted: Yes Past Eoyijpa-Ucahwq-Hennws Hx Patient Social History Tobacco Use?: Yes Tobacco type used: Cigarettes Smoking Status: Current Everyday Smoker Use of E-Cig and/or Vaping dev: No Substance use?: Yes Substance type: Marijuana Alcohol Use?: No Pt feels they are or have been: No Immunizations Up To Date Influenza Vaccine Up-to-Date: No; Not Current First/Initial COVID19 Vaccinat: Not currently vaccinated Second COVID19 Vaccination Koko: Not currently vaccinated Third COVID19 Vaccination Date: Not currently vaccinated Seasonal Allergies Seasonal Allergies: No Past Medical History Surgery/Hospitalization HX: Preeti Surgeries: Yes Gallbladder Respiratory: No Cardiac: No Neurological: No Genitourinary: No Gastrointestinal: Yes (CHRONIC NAUSEA/VOMITING/ABDOMINAL PAIN ) Musculoskeletal: No Endocrine: No HEENT: No Cancer: No Psychosocial: No Integumentary: No Blood Disorders: No Adverse Reaction/Blood Tranf: No Physical Exam Vital Signs Vital Signs - First Documented 04/22/23 14:50 Temp 36.3 Pulse 73 Resp 22 B/P (MAP) 132/94 (107) Pulse Ox 100 O2 Delivery Room Air Capillary Refill : Less Than 3 Seconds Height/Weight/BMI Height: 5'8.00" Weight: 155lbs. oz. [id number]; BMI Method:Stated General Appearance: mild distress (Very anxious) HEENT: PERRL/EOMI, normal ENT inspection, other (Dry oral mucosa) Neck: non-tender, full range of motion Respiratory: chest non-tender, lungs clear, normal breath sounds, no respiratory distress Cardiovascular: regular rate, rhythm, no edema, no gallop Gastrointestinal: normal bowel sounds, non tender, soft, no organomegaly Extremities: normal range of motion, non-tender, normal inspection Back: normal inspection, no CVA tenderness Neurologic/Psychiatric: alert, oriented x 3, other (Anxious) Skin: normal color Lymphatic: no adenopathy Focused Exam Lactate Level 04/22/23 15:30: Lactic Acid Level 2.44*H 04/22/23 16:56: Lactic Acid Level 2.11*H Lactic Acid Level Laboratory Tests Test 04/22/23 15:30 04/22/23 16:56 Lactic Acid Level 2.44 MMOL/L (0.50-2.00) *H 2.11 MMOL/L (0.50-2.00) *H Progress/Results/Core Measures Results/Orders Lab Results Laboratory Tests Test 04/22/23 14:52 04/22/23 15:30 04/22/23 16:56 Range/Units White Blood Count 19.2 H 24.4 H 4.3-11.0 10^3/uL Red Blood Count 5.18 4.45 4.30-5.52 10^6/uL Hemoglobin 16.1 13.9 13.3-17.7 g/dL Hematocrit 47 42 40-54 % Mean Corpuscular Volume 91 94 80-99 fL Mean Corpuscular Hemoglobin 31 31 25-34 pg Mean Corpuscular Hemoglobin Concent 34 33 32-36 g/dL Red Cell Distribution Width 12.6 12.7 10.0-14.5 % Platelet Count 422 H 311 130-400 10^3/uL Mean Platelet Volume 10.2 10.4 9.0-12.2 fL Immature Granulocyte % (Auto) 0 % Neutrophils (%) (Auto) 75 42-75 % Lymphocytes (%) (Auto) 19 12-44 % Monocytes (%) (Auto) 5 0-12 % Eosinophils (%) (Auto) 1 0-10 % Basophils (%) (Auto) 1 0-10 % Neutrophils # (Auto) 14.3 H 1.8-7.8 10^3/uL Lymphocytes # (Auto) 3.6 1.0-4.0 10^3/uL Monocytes # (Auto) 1.0 0.0-1.0 10^3/uL Eosinophils # (Auto) 0.2 0.0-0.3 10^3/uL Basophils # (Auto) 0.1 0.0-0.1 10^3/uL Immature Granulocyte # (Auto) 0.1 0.0-0.1 10^3/uL Neutrophils % (Manual) 78 % Lymphocytes % (Manual) 21 % Monocytes % (Manual) 1 % Sodium Level 145 135-145 MMOL/L Potassium Level 3.6 3.6-5.0 MMOL/L Chloride Level 105 98-107 MMOL/L Carbon Dioxide Level 19 L 21-32 MMOL/L Anion Gap 21 H 5-14 MMOL/L Blood Urea Nitrogen 8 7-18 MG/DL Creatinine 0.87 0.60-1.30 MG/DL Estimat Glomerular Filtration Rate 110 BUN/Creatinine Ratio 9 Glucose Level 149 H 70-105 MG/DL Calcium Level 11.0 H 8.5-10.1 MG/DL Corrected Calcium 8.5-10.1 MG/DL Magnesium Level 2.3 1.6-2.4 MG/DL Total Bilirubin 0.4 0.1-1.0 MG/DL Aspartate Amino Transf (AST/SGOT) 27 5-34 U/L Alanine Aminotransferase (ALT/SGPT) 42 0-55 U/L Alkaline Phosphatase 123 40-136 U/L Troponin I < 0.30 <0.30 NG/ML Total Protein 9.2 H 6.4-8.2 GM/DL Albumin 5.6 H 3.2-4.5 GM/DL Lipase 39 8-78 U/L Lactic Acid Level 2.44 *H 2.11 *H 0.50-2.00 MMOL/L Urine Color YELLOW Urine Clarity CLEAR Urine pH 8.5 5-9 Urine Specific [place] 1.015 L 1.016-1.022 Urine Protein TRACE H NEGATIVE Urine Glucose (UA) NEGATIVE NEGATIVE Urine Ketones 1+ H NEGATIVE Urine Nitrite NEGATIVE NEGATIVE Urine Bilirubin NEGATIVE NEGATIVE Urine Urobilinogen 0.2 < = 1.0 MG/DL Urine Leukocyte Esterase NEGATIVE NEGATIVE Urine RBC (Auto) NEGATIVE NEGATIVE Urine RBC NONE /HPF Urine WBC 5-10 H /HPF Urine Squamous Epithelial Cells NONE /HPF Urine Crystals NONE /LPF Urine Bacteria LARGE H /HPF Urine Casts PRESENT /LPF Urine Hyaline Casts 2-5 H /LPF Urine Mucus LARGE H /LPF Urine Culture Indicated YES Urine Opiates Screen NEGATIVE NEGATIVE Urine Oxycodone Screen NEGATIVE NEGATIVE Urine Methadone Screen NEGATIVE NEGATIVE Urine Propoxyphene Screen NEGATIVE NEGATIVE Urine Barbiturates Screen NEGATIVE NEGATIVE Ur Tricyclic Antidepressants Screen NEGATIVE NEGATIVE Urine Phencyclidine Screen NEGATIVE NEGATIVE Urine Amphetamines Screen NEGATIVE NEGATIVE Urine Methamphetamines Screen NEGATIVE NEGATIVE Urine Benzodiazepines Screen NEGATIVE NEGATIVE Urine Cocaine Screen NEGATIVE NEGATIVE Urine Cannabinoids Screen POSITIVE H NEGATIVE My Orders Orders - DEBRA RABAGO MD Comprehensive Metabolic Panel (04/22/23 14:57) Lipase (04/22/23 14:57) Ua Culture If Indicated (04/22/23 14:57) Ed Iv/Invasive Line Start (04/22/23 14:57) Cbc And Automated Diff (04/22/23 14:57) Drug Screen Stat (Urine) (04/22/23 14:57) Ns Iv 1000 Ml (Ns Iv 1000 Ml) (04/22/23 15:00) Ondansetron Injection (Ondansetron Inj (04/22/23 15:00) Ondansetron Injection (Ondansetron Inj (04/22/23 14:58) Ns Iv 1000 Ml (Ns Iv 1000 Ml) (04/22/23 14:58) Manual Differential (04/22/23 14:52) Ondansetron Injection (Ondansetron Inj (04/22/23 15:02) Lactic Acid Analyzer (04/22/23 15:25) Ct Abdomen/Pelvis Wo (04/22/23 15:25) Magnesium (04/22/23 15:25) Troponin I Fs (04/22/23 15:25) Fentanyl Injection (Fentanyl Injection (04/22/23 15:30) Ns Iv 1000 Ml (Ns Iv 1000 Ml) (04/22/23 15:30) Cbc No Diff (04/22/23 16:48) Lactic Acid Analyzer (04/22/23 16:48) Prochlorperazine Injection (Prochlorpera (04/22/23 17:00) Urine Culture (04/22/23 16:56) Medications Given in ED Current Medications Medications Dose Ordered Sig/Patricio Route Start Time Stop Time Status Last Admin Dose Admin Fentanyl Citrate 50 mcg ONCE ONCE IVP 04/22/23 15:30 04/22/23 15:31 DC 04/22/23 15:49 50 MCG Ondansetron HCl 8 mg ONCE ONCE IVP 04/22/23 15:00 04/22/23 15:01 DC 04/22/23 15:03 8 MG Prochlorperazine Edisylate 10 mg ONCE ONCE IV 04/22/23 17:00 04/22/23 17:01 DC 04/22/23 16:55 10 MG Vital Signs/I&O 04/22/23 14:50 Temp 36.3 Pulse 73 Resp 22 B/P (MAP) 132/94 (107) Pulse Ox 100 O2 Delivery Room Air Blood Pressure Mean: 107 Progress Progress Note : Progress Note Differential diagnosis: Cyclic vomiting syndrome, marijuana induced vomiting, dehydration, electrolyte imbalance, anxiety Patient with history of marijuana induced vomiting presented POV with complaining of 7 episode of vomiting after using marijuana today. Patient had a stable vital sign and exam except for anxiety. CBC, CMP, lactic acid, UA, lipase, UDS was ordered and showed white count of 19,000 and lactic acid of 2.4. Patient treated with 2 L of normal saline, Zofran, Compazine, fentanyl with improvement of his condition. Patient tolerated oral intake. Repeat CBC and lactic acid requested but patient eloped from ER before having the results with IV line in place. Police Department was informed. Departure Impression Primary Impression: Acute gastroenteritis Additional Impressions: Leukocytosis Qualified Codes: D72.829 - Elevated white blood cell count, unspecified UTI (urinary tract infection) Qualified Codes: N39.0 - Urinary tract infection, site not specified Noncompliance Elevated lactic acid level Hypercalcemia Disposition: AGAINST MEDICAL ADVICE (Elped at [address]) Condition: Improved Departure-Patient Inst. Decision time for Depature: 17:00 Referrals: NO,LOCAL PHYSICIAN (PCP/Family) Primary Care Physician DEBRA RABAGO MD Apr 22, 2023 17:09
[2023-04-22 17:12] LABS: AMPHETAMINE SCREEN, URINE NEGATIVE (NEGATIVE); BARBITURATE SCREEN URINE NEGATIVE (NEGATIVE); CANNABINOID SCREEN, URINE POSITIVE (NEGATIVE); COCAINE SCREEN URINE NEGATIVE (NEGATIVE); METHADONE STAT NEGATIVE (NEGATIVE); OPIATE SCREEN URINE NEGATIVE (NEGATIVE); OXYCODONE STAT NEGATIVE (NEGATIVE); PROPOXYPHENE STAT NEGATIVE (NEGATIVE); TRICYCLIC ANTIDEPRESSANTS SCRE NEGATIVE (NEGATIVE)
[2023-04-26] MEDS ORDERED: BISACODYL 10 MG SUPPOSITORY PR PRN (16:00)
[2023-04-26] MEDS ORDERED: NS IV 1000 ML 1,000 ML IV SCH (16:00)
[2023-04-26] MEDS ORDERED: ENOXAPARIN 40 MG/0.4 ML SYRINGE SC SCH (16:00)
[2023-04-26] MEDS ORDERED: ONDANSETRON 4 MG ORAL DISSOLVE TABLET PO PRN (16:00)
[2023-04-26] MEDS ORDERED: ACETAMINOPHEN 325 MG TABLET PO PRN (16:00)
[2023-04-26] MEDS ORDERED: MELATONIN 3 MG TABLET PO PRN (16:00)
[2023-04-26] MEDS ORDERED: METOCLOPRAMIDE INJ 10 MG/2 ML IVP PRN (16:00)
[2023-04-26] MEDS ORDERED: ANTACID SUSPENSION 30 ML UDC PO PRN (16:00)
[2023-04-26] MEDS ORDERED: PROCHLORPERAZINE INJ 10 MG/2ML VIAL IV PRN (16:00)
[2023-04-26] MEDS ORDERED: LACTULOSE SYRUP 10GM/15ML 30ML UDC PO PRN (16:00)
[2023-04-26] MEDS ORDERED: ONDANSETRON INJECTION 4 MG/2 ML (SDV) IV PRN (16:00)
== END 2023-04-22 17:10 | disposition left against medical advice (07) ==
LOC: EDUNIT# 14:41 → ER FS 14:43
DX: K52.9 Noninfective gastroenteritis and colitis, unspecified (principal); N39.0 Urinary tract infection, site not specified; E83.52 Hypercalcemia; R74.02 Elevation of levels of lactic acid dehydrogenase [LDH]; F17.210 Nicotine dependence, cigarettes, uncomplicated; Z91.199 Patient's noncompliance with other medical treatment and regimen due to unspecified reason; Z28.310 Unvaccinated for COVID-19
CPT/HCPCS: 36415; 74176; 80053; 80306; 81000; 83605; 83690; 83735; 84484; 85007; 85027; 87088

== ENCOUNTER 2023-04-26 13:56 | Observation (INO) | payer SELFPAY ==
[~2023-04-26] VITALS: Ht 175 cm; Wt 74.0 kg
[2023-04-26] MEDS ORDERED: METOCLOPRAMIDE INJ 10 MG/2 ML IVP ONE (14:30)
[2023-04-26] MEDS ORDERED: fentaNYL INJECTION 100 MCG/2 ML VIAL IVP ONE (14:30)
[2023-04-26] MEDS ORDERED: NS IV 1000 ML 1,000 ML IV SCH ×2 (14:30→15:30)
[2023-04-26] MEDS ORDERED: PANTOPRAZOLE INJECTION 40 MG VIAL IV ONE (14:30)
--- NOTE | 2023-04-26 14:36 | ED GI ---
General Chief Complaint: Abdominal/GI Problems Stated Complaint: VOMITING Nursing Triage Note: ARRIVED VIA AMB TO ROOM 05. STATES HE WAS DISCHARGED FROM [facility] LAST NIGHT AND STARTED VOMITING AT 0900 TODAY. LAST MARIJUANA USE WAS TUESDAY. Source of Information: Patient, RN Notes Reviewed Exam Limitations: No Limitations History of Present Illness Date Seen by Provider: Apr 26, 2023 Time Seen by Provider: 14:17 Initial Comments 43-year-old male patient brought in by family members because of nausea and vomiting and abdominal pain that started around 9 AM today with more than 10 episodes of nonbloody vomiting and 2 episodes of loose stool. Patient complaining of severe epigastric pain and rated his pain 10/10. Patient denies fever and chills, chest pain and shortness of breath, using marijuana since 6 days ago. Patient has history of marijuana induced nausea and vomiting and was seen in this emergency room on April 22 with complaining of nausea and vomiting and abdominal pain after using marijuana the day before his presentation and had labs and medication but eloped the emergency room without signing AGAINST MEDICAL ADVICE with his IV line in place and is stated he went to [facility] to see and was admitted with diagnosis of acute renal failure and was discharged home last night. Patient had BUN of 8 and creatinine of 0.87 in his previous ER visit with elevation of white count and lactic acid and calcium and unremarkable CT of abdomen and pelvis. Patient is very anxious and has attitude at arrival to ER. Allergies and Home Medications Allergies Coded Allergies: No Known Drug Allergies (Unverified , 04/17/18) Patient Home Medication List Home Medication List Reviewed: Yes Review of Systems Review of Systems Constitutional: see HPI EENTM: No Symptoms Reported Respiratory: No Symptoms Reported Cardiovascular: No Symptoms Reported Gastrointestinal: See HPI Genitourinary: No Symptoms Reported Musculoskeletal: no symptoms reported Skin: no symptoms reported Psychiatric/Neurological: See HPI Endocrine: No Symptoms Reported Hematologic/Lymphatic: No Symptoms Reported All Other Systems Reviewed Negative Unless Noted: Yes Past Gobqnxm-Suyqok-Iptozu Hx Patient Social History Tobacco Use?: Yes Substance use?: Yes Substance type: Marijuana Alcohol Use?: No Immunizations Up To Date First/Initial COVID19 Vaccinat: Not currently vaccinated Second COVID19 Vaccination Koko: Not currently vaccinated Third COVID19 Vaccination Date: Not currently vaccinated Seasonal Allergies Seasonal Allergies: No Past Medical History Surgery/Hospitalization HX: Preeti Surgeries: Yes Gallbladder Respiratory: No Cardiac: No Neurological: No Genitourinary: No Gastrointestinal: Yes (CHRONIC NAUSEA/VOMITING/ABDOMINAL PAIN ) Musculoskeletal: No Endocrine: No HEENT: No Cancer: No Psychosocial: No Integumentary: No Blood Disorders: No Adverse Reaction/Blood Tranf: No Physical Exam Vital Signs Vital Signs - First Documented 04/26/23 14:00 Temp 36.3 Pulse 57 Resp 16 B/P (MAP) 158/94 (115) Pulse Ox 99 O2 Delivery Room Air Capillary Refill : Less Than 3 Seconds Height/Weight/BMI Height: 5'8.00" Weight: 155lbs. oz. [id number]; 23.00 BMI Method:Stated General Appearance: mild distress (Very anxious) HEENT: PERRL/EOMI Neck: non-tender Respiratory: chest non-tender, lungs clear, normal breath sounds, no respiratory distress, no accessory muscle use Cardiovascular: no edema, no gallop, bradycardia Gastrointestinal: normal bowel sounds, soft, no pulsatile mass, guarding (Epigastric) Extremities: normal range of motion Back: normal inspection Neurologic/Psychiatric: alert, oriented x 3 Skin: normal color, warm/dry Lymphatic: no adenopathy Focused Exam Lactate Level 04/26/23 14:25: Lactic Acid Level 3.04*H 04/26/23 16:32: Lactic Acid Level 1.38 Lactic Acid Level Laboratory Tests Test 04/26/23 14:25 04/26/23 16:32 Lactic Acid Level 3.04 MMOL/L (0.50-2.00) *H 1.38 MMOL/L (0.50-2.00) Progress/Results/Core Measures Results/Orders Lab Results Laboratory Tests Test 04/26/23 14:25 04/26/23 15:10 04/26/23 16:32 Range/Units White Blood Count 15.3 H 4.3-11.0 10^3/uL Red Blood Count 4.95 4.30-5.52 10^6/uL Hemoglobin 15.7 13.3-17.7 g/dL Hematocrit 45 40-54 % Mean Corpuscular Volume 90 80-99 fL Mean Corpuscular Hemoglobin 32 25-34 pg Mean Corpuscular Hemoglobin Concent 35 32-36 g/dL Red Cell Distribution Width 12.1 10.0-14.5 % Platelet Count 351 130-400 10^3/uL Mean Platelet Volume 10.6 9.0-12.2 fL Immature Granulocyte % (Auto) 1 % Neutrophils (%) (Auto) 77 H 42-75 % Lymphocytes (%) (Auto) 14 12-44 % Monocytes (%) (Auto) 8 0-12 % Eosinophils (%) (Auto) 0 0-10 % Basophils (%) (Auto) 1 0-10 % Neutrophils # (Auto) 11.8 H 1.8-7.8 10^3/uL Lymphocytes # (Auto) 2.2 1.0-4.0 10^3/uL Monocytes # (Auto) 1.2 H 0.0-1.0 10^3/uL Eosinophils # (Auto) 0.0 0.0-0.3 10^3/uL Basophils # (Auto) 0.1 0.0-0.1 10^3/uL Immature Granulocyte # (Auto) 0.1 0.0-0.1 10^3/uL Neutrophils % (Manual) 72 % Lymphocytes % (Manual) 20 % Monocytes % (Manual) 8 % Platelet Estimate ADEQUATE Blood Morphology Comment NORMAL Sodium Level 133 L 135-145 MMOL/L Potassium Level 3.3 L 3.6-5.0 MMOL/L Chloride Level 95 L 98-107 MMOL/L Carbon Dioxide Level 20 L 21-32 MMOL/L Anion Gap 18 H 5-14 MMOL/L Blood Urea Nitrogen 14 7-18 MG/DL Creatinine 1.10 0.60-1.30 MG/DL Estimat Glomerular Filtration Rate 85 BUN/Creatinine Ratio 13 Glucose Level 132 H 70-105 MG/DL Lactic Acid Level 3.04 *H 1.38 0.50-2.00 MMOL/L Calcium Level 10.6 H 8.5-10.1 MG/DL Corrected Calcium 8.5-10.1 MG/DL Total Bilirubin 1.5 H 0.1-1.0 MG/DL Aspartate Amino Transf (AST/SGOT) 77 H 5-34 U/L Alanine Aminotransferase (ALT/SGPT) 50 0-55 U/L Alkaline Phosphatase 93 40-136 U/L Total Protein 8.5 H 6.4-8.2 GM/DL Albumin 4.9 H 3.2-4.5 GM/DL Lipase 40 8-78 U/L Urine Color DARK YELLOW Urine Clarity CLOUDY Urine pH 6.0 5-9 Urine Specific [place] >=1.030 1.016-1.022 Urine Protein 2+ H NEGATIVE Urine Glucose (UA) NEGATIVE NEGATIVE Urine Ketones TRACE H NEGATIVE Urine Nitrite POSITIVE H NEGATIVE Urine Bilirubin NEGATIVE NEGATIVE Urine Urobilinogen 1.0 < = 1.0 MG/DL Urine Leukocyte Esterase NEGATIVE NEGATIVE Urine RBC (Auto) NEGATIVE NEGATIVE Urine RBC NONE /HPF Urine WBC 0-2 /HPF Urine Squamous Epithelial Cells NONE /HPF Urine Crystals PRESENT H /LPF Urine Calcium Oxalate Crystals FEW H /LPF Urine Amorphous Sediment MOD PREM URATES H /LPF Urine Bacteria LARGE H /HPF Urine Casts PRESENT /LPF Urine Hyaline Casts >50 H /LPF Urine Mucus LARGE H /LPF Urine Culture Indicated YES Urine Opiates Screen NEGATIVE NEGATIVE Urine Oxycodone Screen NEGATIVE NEGATIVE Urine Methadone Screen NEGATIVE NEGATIVE Urine Propoxyphene Screen NEGATIVE NEGATIVE Urine Barbiturates Screen NEGATIVE NEGATIVE Ur Tricyclic Antidepressants Screen NEGATIVE NEGATIVE Urine Phencyclidine Screen NEGATIVE NEGATIVE Urine Amphetamines Screen NEGATIVE NEGATIVE Urine Methamphetamines Screen NEGATIVE NEGATIVE Urine Benzodiazepines Screen NEGATIVE NEGATIVE Urine Cocaine Screen NEGATIVE NEGATIVE Urine Cannabinoids Screen POSITIVE H NEGATIVE My Orders Orders - DEBRA RABAGO MD Comprehensive Metabolic Panel (04/26/23 14:24) Lipase (04/26/23 14:24) Ua Culture If Indicated (04/26/23 14:24) Ed Iv/Invasive Line Start (04/26/23 14:24) Cbc And Automated Diff (04/26/23 14:24) Lactic Acid Analyzer (04/26/23 14:24) Drug Screen Stat (Urine) (04/26/23 14:24) Metoclopramide Injection (Metoclopramide (04/26/23 14:30) Pantoprazole Injection (Pantoprazole Inj (04/26/23 14:30) Fentanyl Injection (Fentanyl Injection (04/26/23 14:30) Ns Iv 1000 Ml (Ns Iv 1000 Ml) (04/26/23 14:30) Manual Differential (04/26/23 14:25) Ns Iv 1000 Ml (Ns Iv 1000 Ml) (04/26/23 15:30) Promethazine Injection (Promethazine I (04/26/23 15:30) Urine Culture (04/26/23 15:10) Ed Admission (Communication) (04/26/23 15:50) Medications Given in ED Current Medications Medications Dose Ordered Sig/Patricio Route Start Time Stop Time Status Last Admin Dose Admin Fentanyl Citrate 50 mcg ONCE ONCE IVP 04/26/23 14:30 04/26/23 14:31 DC 04/26/23 14:33 50 MCG Metoclopramide HCl 10 mg ONCE ONCE IVP 04/26/23 14:30 04/26/23 14:31 DC 04/26/23 14:33 10 MG Pantoprazole 40 mg ONCE ONCE IV 04/26/23 14:30 04/26/23 14:31 DC 04/26/23 14:33 40 MG Promethazine HCl 25 mg ONCE ONCE IVP 04/26/23 15:30 04/26/23 15:31 DC 04/26/23 15:34 25 MG Vital Signs/I&O 04/26/23 04/26/23 14:00 16:44 Temp 36.3 Pulse 57 71 Resp 16 16 B/P (MAP) 158/94 (115) 140/81 Pulse Ox 99 96 O2 Delivery Room Air Room Air Blood Pressure Mean: 115 Progress Progress Note : Progress Note Differential diagnosis: Dehydration, electrolyte imbalance, substance abuse Patient with frequent episodes of nausea and vomiting and epigastric pain with 2 episodes of vomiting while he was in the emergency room after giving IV Reglan and Phenergan. Patient has history of marijuana and use nausea and vomiting and was seen in this emergency room on April 22 but eloped from the ER and according to medical report from [facility] was seen after 28 hours from his emergency room visit and here and admitted with diagnosis of acute renal failure and discharged home last night. Patient was anxious and had attitude at arrival to ER and treated with IV fluid, Reglan, Protonix and fentanyl with improvement of his condition but patient had another episode of vomiting while he was in ER and treated with Phenergan. CBC, CMP, lipase, lactic acid, UA and UDS was ordered and reviewed by me. Patient had white count of 15,000 that dropped from the previous white count of 21,000. Lactic acid was elevated at 3.0 that could be because of hyperventilation. UA showed bacteria and positive nitrates without WBC and antibiotic was not started. CMP showed mild hypokalemia and hyponatremia and hypochloremia with normal BUN and creatinine. Liver enzyme was mildly elevated. Decided to admit patient with diagnosis of intractable nausea and vomiting and patient requested transfer to nearby the hospital. Dr. Nelson on-call hospitalist at [facility] was consulted at 1532 and declined excepting the patient because of lack of GI specialist in the hospital. Patient was informed and decided to get admission [facility]. On-call hospitalist Dr. Vasquez was consulted at 1535 and agreed to observation admission. Patient and his family was updated frequently about test results and plan of care and need for admission and all questions was addressed. Repeat lactic acid was 1.38. Critical Care Note Critical Care Start Time: 14:17 Stop Time: 15:00 Total Time (minutes) 53 Departure Communication (Admissions) Time/Spoke to Admitting Phy: 15:46 Dr. Vasquez was consulted and accepted admission at 1535. Family Conversation Patient and his family informed about plan of care and need for admission. Impression Primary Impression: Intractable nausea and vomiting Additional Impression: Hypokalemia Disposition: 30 STILL A PATIENT Condition: Improved Admissions Decision to Admit Reason: Admit from ER (General) Decision to Admit/Date: Apr 26, 2023 Time/Decision to Admit Time: 15:39 Departure-Patient Inst. Referrals: NO,LOCAL PHYSICIAN (PCP/Family) Primary Care Physician DEBRA RABAGO MD Apr 26, 2023 14:36
[2023-04-26 14:54] LABS: BASOPHILS # (AUTO) 0.1 10^3/uL (0.0-0.1); BASOPHILS % (AUTO) 1 % (0-10); EOSINOPHILS % (AUTO) 0 % (0-10); HEMATOCRIT 45 % (40-54); HEMOGLOBIN 15.7 g/dL (13.3-17.7); LYMPHOCYTES # (AUTO) 2.2 10^3/uL (1.0-4.0); LYMPHOCYTES % (AUTO) 14 % (12-44); MEAN CORPUSCULAR HEMOGLOBIN 32 pg (25-34); MEAN CORPUSCULAR HGB CONC 35 g/dL (32-36); MEAN CORPUSCULAR VOLUME 90 fL (80-99); MEAN PLATELET VOLUME 10.6 fL (9.0-12.2); MONOCYTES # (AUTO) 1.2 10^3/uL (0.0-1.0); MONOCYTES % (AUTO) 8 % (0-12); NEUTROPHILS # (AUTO) 11.8 10^3/uL (1.8-7.8); NEUTROPHILS % (AUTO) 77 % (42-75); PLATELET COUNT 351 10^3/uL (130-400); WHITE BLOOD COUNT 15.3 10^3/uL (4.3-11.0)
[2023-04-26 15:10] LABS: LYMPHOCYTES % (MANUAL) 20 %; MONOCYTES % (MANUAL) 8 %; NEUTROPHILS % (MANUAL) 72 %; PLATELET ESTIMATE ADEQUATE; RBC MORPH NORMAL
[2023-04-26 15:15] LABS: BUN/CREATININE RATIO 13; CARBON DIOXIDE 20 MMOL/L (21-32); CHLORIDE 95 MMOL/L (98-107); GFR ESTIMATED 85; POTASSIUM 3.3 MMOL/L (3.6-5.0); SODIUM 133 MMOL/L (135-145)
[2023-04-26 15:16] LABS: ALANINE AMINOTRANSFERASE 50 U/L (0-55); ALBUMIN 4.9 GM/DL (3.2-4.5); ALKALINE PHOSPHATASE 93 U/L (40-136); BILIRUBIN,TOTAL 1.5 MG/DL (0.1-1.0); CALCIUM 10.6 MG/DL (8.5-10.1); GLUCOSE 132 MG/DL (70-105); LIPASE 40 U/L (8-78); TOTAL PROTEIN 8.5 GM/DL (6.4-8.2)
[2023-04-26 15:17] LABS: BILIRUBIN,URINE NEGATIVE (NEGATIVE); CLARITY,URINE CLOUDY; GLUCOSE, URINE (UA) NEGATIVE (NEGATIVE); KETONES,URINE TRACE (NEGATIVE); LEUKOCYTE ESTERASE ,URINE NEGATIVE (NEGATIVE); NITRITE,URINE POSITIVE (NEGATIVE); PROTEIN,URINE 2+ (NEGATIVE)
[2023-04-26 15:28] LABS: BACTERIA,URINE LARGE /HPF; COLOR,URINE DARK YELLOW; WBC,URINE 0-2 /HPF
[2023-04-26 15:29] LABS: AMORPHOUS SEDIMENT,UR MOD AMOR URATES /LPF; CALCIUM OXALATE CRYSTALS,UR FEW /LPF
[2023-04-26 15:30] LABS: HYALINE CASTS, URINE >50 /LPF
[2023-04-26] MEDS ORDERED: PROMETHAZINE INJ 25 MG/ML VIAL IVP ONE (15:30)
[2023-04-26 15:32] LABS: AMPHETAMINE SCREEN, URINE NEGATIVE (NEGATIVE); BARBITURATE SCREEN URINE NEGATIVE (NEGATIVE); CANNABINOID SCREEN, URINE POSITIVE (NEGATIVE); COCAINE SCREEN URINE NEGATIVE (NEGATIVE); METHADONE STAT NEGATIVE (NEGATIVE); OPIATE SCREEN URINE NEGATIVE (NEGATIVE); OXYCODONE STAT NEGATIVE (NEGATIVE); PROPOXYPHENE STAT NEGATIVE (NEGATIVE); TRICYCLIC ANTIDEPRESSANTS SCRE NEGATIVE (NEGATIVE)
[2023-04-26 17:45] VITALS: BP 135/76
[2023-04-26] MEDS ORDERED: ONDANSETRON 4 MG ORAL DISSOLVE TABLET PO PRN (18:00)
[2023-04-26] MEDS ORDERED: LACTULOSE SYRUP 10GM/15ML 30ML UDC PO PRN (18:00)
[2023-04-26] MEDS ORDERED: MELATONIN 3 MG TABLET PO PRN (18:00)
[2023-04-26] MEDS ORDERED: ACETAMINOPHEN 325 MG TABLET PO PRN ×2 (18:00→22:00)
[2023-04-26] MEDS ORDERED: PROCHLORPERAZINE INJ 10 MG/2ML VIAL IV PRN (18:00)
[2023-04-26] MEDS ORDERED: ANTACID SUSPENSION 30 ML UDC PO PRN (18:00)
[2023-04-26] MEDS ORDERED: ENOXAPARIN 40 MG/0.4 ML SYRINGE SC SCH (18:00)
[2023-04-26] MEDS ORDERED: BISACODYL 10 MG SUPPOSITORY PR PRN (18:00)
[2023-04-26] MEDS ORDERED: CALCIUM CARBONATE 500 MG CHEW TABLET PO PRN (18:00)
[2023-04-26] MEDS ORDERED: METOCLOPRAMIDE INJ 10 MG/2 ML IVP PRN (18:00)
[2023-04-26] MEDS ORDERED: ONDANSETRON INJECTION 4 MG/2 ML (SDV) IV PRN (18:00)
[2023-04-26] MEDS ORDERED: MILK OF MAGNESIA 400 MG/5 ML 30 ML UDC PO PRN (18:00)
[2023-04-26] MEDS: NS IV 500 ML 500 ML IV PRN (18:22)
[2023-04-26] MEDS ORDERED: KETOROLAC INJ 30 MG/ML VIAL IVP PRN (19:00)
[2023-04-26 19:44] VITALS: BP 105/68
[2023-04-26] MEDS: DOCUSATE SODIUM 100 MG CAPSULE PO SCH (20:00)
[2023-04-26] MEDS: PANTOPRAZOLE 40 MG TABLET PO SCH (20:01)
[2023-04-26] MEDS: SENNOSIDES 8.6 MG TABLET PO SCH (20:01)
[2023-04-26] MEDS: SUCRALFATE 1 GM TABLET PO SCH (20:01)
[2023-04-26 23:17] VITALS: BP 104/62
[2023-04-26] MEDS: NS IV 1000 ML 1,000 ML IV SCH (23:42)
[2023-04-27] MEDS: NS IV 1000 ML 1,000 ML IV SCH ×2 (00:24→10:00)
[2023-04-27 04:30] VITALS: BP 124/70
[2023-04-27 05:35] LABS: BASOPHILS # (AUTO) 0.1 10^3/uL (0.0-0.1); BASOPHILS % (AUTO) 0 % (0-10); EOSINOPHILS # (AUTO) 0.1 10^3/uL (0.0-0.3); EOSINOPHILS % (AUTO) 0 % (0-10); HEMATOCRIT 34 % (40-54); HEMOGLOBIN 11.6 g/dL (13.3-17.7); LYMPHOCYTES # (AUTO) 2.8 10^3/uL (1.0-4.0); LYMPHOCYTES % (AUTO) 19 % (12-44); MEAN CORPUSCULAR HEMOGLOBIN 31 pg (25-34); MEAN CORPUSCULAR HGB CONC 34 g/dL (32-36); MEAN CORPUSCULAR VOLUME 92 fL (80-99); MEAN PLATELET VOLUME 10.7 fL (9.0-12.2); MONOCYTES # (AUTO) 1.2 10^3/uL (0.0-1.0); MONOCYTES % (AUTO) 8 % (0-12); NEUTROPHILS # (AUTO) 10.3 10^3/uL (1.8-7.8); NEUTROPHILS % (AUTO) 71 % (42-75); PLATELET COUNT 258 10^3/uL (130-400); WHITE BLOOD COUNT 14.5 10^3/uL (4.3-11.0)
[2023-04-27 05:50] LABS: ALBUMIN 3.4 GM/DL (3.2-4.5)
[2023-04-27 05:51] LABS: CALCIUM 8.1 MG/DL (8.5-10.1)
[2023-04-27 05:53] LABS: TOTAL PROTEIN 5.8 GM/DL (6.4-8.2)
[2023-04-27 05:54] LABS: BILIRUBIN,TOTAL 0.9 MG/DL (0.1-1.0)
[2023-04-27 05:56] LABS: CREATININE SERUM 0.81 MG/DL (0.60-1.30)
[2023-04-27 05:58] LABS: BILIRUBIN,DIRECT 0.4 MG/DL (0.0-0.3); BILIRUBIN,INDIRECT 0.5 MG/DL
[2023-04-27 05:59] LABS: MAGNESIUM 1.9 MG/DL (1.6-2.4)
[2023-04-27] MEDS ORDERED: MAGNESIUM 1 GM/100 ML IVPB 100 ML IV SCH (06:00)
[2023-04-27] MEDS ORDERED: POTASSIUM BICARB 20 MEQ effervescent TABLET PO SCH (06:00)
[2023-04-27] MEDS ORDERED: POTASSIUM CHLORIDE 20 MEQ TABLET PO SCH (06:00)
[2023-04-27] MEDS ORDERED: POTASSIUM CL 10MEQ/50ML IVPB 50 ML IV SCH (06:00)
[2023-04-27] MEDS: POTASSIUM CL 10MEQ/50ML IVPB 50 ML IV SCH ×5 (06:11→10:39)
[2023-04-27] MEDS: SUCRALFATE 1 GM TABLET PO SCH ×2 (06:11→10:36)
[2023-04-27] MEDS: MAGNESIUM 1 GM/100 ML IVPB 100 ML IV SCH ×2 (06:50→07:58)
[2023-04-27 07:08] VITALS: BP 108/58
[2023-04-27] MEDS: DOCUSATE SODIUM 100 MG CAPSULE PO SCH (07:58)
[2023-04-27] MEDS: SENNOSIDES 8.6 MG TABLET PO SCH (07:59)
[2023-04-27] MEDS: PANTOPRAZOLE 40 MG TABLET PO SCH (08:01)
[2023-04-27 11:17] VITALS: BP 110/60
[2023-04-27] MEDS ORDERED: ONDA-105 PO (11:25)
[2023-04-27] MEDS ORDERED: IBUP-2473 PO (11:25)
[2023-04-27] MEDS ORDERED: ACET-2267 PO (11:25)
[2023-04-27] MEDS ORDERED: PANT40TA52 PO (11:25)
--- NOTE | 2023-04-27 16:03 | Short Stay Summary-Hospitalist ---
History of Present Illness HPI/Chief Complaint Elpidio Beltre is a 43 year old male who presented with nausea and vomiting. He has a history of cannibis hyperemesis syndrome. He was recently admitted and discharged from a hospital in [place] with similar symptoms. He quit smoking a couple years ago but recently smoked again. He is no longer having any symptoms. He has been able to tolerate clears. He denies abdominal pain. He wants to advance his diet. He reports that he is no longer going to use marijuana. Source: patient Exam Limitations: no limitations Date Seen 04/27/23 Time Seen by a Provider: 11:15 Attending Physician No,Local Physician PCP Admitting Physician: Maria E Islas MD Attending Physician: Maria E Islas MD Referring Physician Date of Admission Apr 26, 2023 at 17:34 Home Medications & Allergies Home Medications Reviewed patient Home Medication Reconciliation performed by pharmacy medication reconciliations mapping technician and/or nursing. Patients Allergies have been reviewed. Allergies Allergies Coded Allergies No Known Drug Allergies ([id number]/10/23) Past Aiywgus-Jrrdmu-Nvirzs Hx Patient Social History Tobacco Use?: Yes Tobacco type used: Cigarettes Smoking Status: Former Smoker Use of E-Cig and/or Vaping dev: No Substance use?: Yes Substance type: Marijuana Substance frequency: Daily Alcohol Use?: No Pt feels they are or have been: No Immunizations Up To Date First/Initial COVID19 Vaccinat: Not currently vaccinated Second COVID19 Vaccination Koko: Not currently vaccinated Tetanus Booster (TDap): Less Than 5 Years Hepatitis A: No Hepatitis B: No Seasonal Allergies Seasonal Allergies: No Current Status Advance Directives: No Communicates: Verbally Primary Language: Georgian Preferred Spoken Language: Georgian Is interpretation needed?: No Implanted or Applied Medical D: None Past Medical History Surgeries: Gallbladder Blood Disorders: No Adverse Reaction/Blood Tranf: No Family Medical History No Pertinent Family Hx Review of Systems Constitutional: no symptoms reported Respiratory: no symptoms reported Cardiovascular: no symptoms reported Gastrointestinal: nausea, vomiting Physical Exam Physical Exam Vital Signs Vital Signs - First Documented 04/26/23 14:00 Temp 36.3 Pulse 57 Resp 16 B/P (MAP) 158/94 (115) Pulse Ox 99 O2 Delivery Room Air Capillary Refill : Less Than 3 Seconds Height, Weight, BMI Height: 5'8.00" Weight: 155lbs. oz. 70.237778gr; 24.16 BMI Method:Stated General Appearance: No Apparent Distress, WD/WN Respiratory: Lungs Clear, No Respiratory Distress Cardiovascular: Regular Rate, Rhythm, No Murmur Gastrointestinal: Normal Bowel Sounds, Non Tender, Soft Extremity: Normal Inspection, No Pedal Edema Neurologic/Psychiatric: Alert, Normal Mood/Affect Results Results/Procedures Labs Laboratory Tests 04/26/23 14:25 04/27/23 05:08 Patient resulted labs reviewed. Imaging: Reviewed Imaging Report Short Stay Diagnosis Discharge Diagnosis-Short Stay Admission Diagnosis Intractable nausea and vomiting Final Discharge Diagnosis Cannibis hyperemesis syndrome Conclusion Plan Cannibis hyperemesis syndrome Symptoms resolved Recommend total cessation of marijuana use Stay well hydrated Establish with a primary care physician Diagnosis/Problems Diagnosis/Problems (1) Cannabis hyperemesis syndrome concurrent with and due to cannabis abuse Status: Acute (2) NENA (acute kidney injury) Status: Resolved Resolution Date/Time: 04/27/23 @ 16:02 (3) Lactic acidosis Status: Resolved Resolution Date/Time: 04/27/23 @ 16:03 (4) Hypokalemia Status: Acute MARIA E ISLAS MD Apr 27, 2023 16:03
== END 2023-04-27 14:00 | disposition home or self-care (01) ==
LOC: EDUNIT# 13:56 → ER FS 13:57 → 4TH 17:34
PROVIDERS: ADMIT Internal Medicine; ATTEND Internal Medicine
DX: N17.9 Acute kidney failure, unspecified (principal); E87.20 Acidosis, unspecified; E87.6 Hypokalemia; F12.90 Cannabis use, unspecified, uncomplicated; Z87.891 Personal history of nicotine dependence
CPT/HCPCS: 36415; 80048; 80053; 80076; 80306; 81000; 83605; 83690; 83735; 85007; 85025; 85027; 87088; 96375; 96376; G0378

== ENCOUNTER 2023-05-08 09:46 | Emergency (ER) | payer SELFPAY ==
[~2023-05-08] VITALS: Ht 175.3 cm; Wt 74.8 kg
[~2023-05-08 09:46] MED LIST: ACET-2267 PO; IBUP-2473 PO; ONDA-105 PO; PANT40TA52 PO
[2023-05-08] MEDS ORDERED: ONDANSETRON INJECTION 4 MG/2 ML (SDV) IVP STA (10:00)
[2023-05-08] MEDS ORDERED: PANTOPRAZOLE INJECTION 40 MG VIAL IV STA (10:00)
[2023-05-08] MEDS ORDERED: DICYCLOMINE 10 MG/ML 2 ML AMPULE IM STA (10:00)
[2023-05-08] MEDS ORDERED: NS IV 1000 ML 1,000 ML IV SCH (10:00)
[2023-05-08 10:06] LABS: GLUCOSE, URINE (UA) TRACE (NEGATIVE); KETONES,URINE TRACE (NEGATIVE); LEUKOCYTE ESTERASE ,URINE NEGATIVE (NEGATIVE); NITRITE,URINE POSITIVE (NEGATIVE); PROTEIN,URINE 2+ (NEGATIVE)
[2023-05-08 10:10] LABS: BASOPHILS # (AUTO) 0.1 10^3/uL (0.0-0.1); BASOPHILS % (AUTO) 0 % (0-10); EOSINOPHILS % (AUTO) 0 % (0-10); HEMATOCRIT 48 % (40-54); HEMOGLOBIN 16.2 g/dL (13.3-17.7); LYMPHOCYTES # (AUTO) 2.5 10^3/uL (1.0-4.0); LYMPHOCYTES % (AUTO) 11 % (12-44); MEAN CORPUSCULAR HEMOGLOBIN 31 pg (25-34); MEAN CORPUSCULAR HGB CONC 34 g/dL (32-36); MEAN CORPUSCULAR VOLUME 90 fL (80-99); MEAN PLATELET VOLUME 9.5 fL (9.0-12.2); MONOCYTES # (AUTO) 1.9 10^3/uL (0.0-1.0); MONOCYTES % (AUTO) 9 % (0-12); NEUTROPHILS # (AUTO) 17.5 10^3/uL (1.8-7.8); NEUTROPHILS % (AUTO) 79 % (42-75); PLATELET COUNT 561 10^3/uL (130-400); WHITE BLOOD COUNT 22.3 10^3/uL (4.3-11.0)
--- NOTE | 2023-05-08 10:11 | ED GI ---
General Stated Complaint: VOMITING Source of Information: Patient, Old Records (short stay record from hospitalist Dr. Tiana Vasquez April 27 and .) History of Present Illness Date Seen by Provider: May 08, 2023 Time Seen by Provider: 09:49 Initial Comments 43-year-old male presenting with complaints of nausea with vomiting since this morning. He states that this started around 4 AM. He thinks that is from eating some greasy food late last night. He denies using any marijuana or drugs. He has previously been seen multiple times for hyperemesis secondary to marijuana. He denies any alcohol or drug use. He feels like he is dehydrated as he has not been able to keep anything down since 4 AM. He denies having any diarrhea. He is having some epigastric abdominal cramping. He denies any other ill contacts, fever, chills, chest pain, shortness of breath. He is dramatical ly moaning and groaning at times. His vital signs are all stable with systolic blood pressure 137 a pulse of 84 and he is afebrile. Timing/Duration: 4-6 Hours Severity/Quality: Mild, Cramping (epigastric) Activities at Onset: Rest Modifying Factors: Worsens With Eating Associated Symptoms: No Back Pain, No Chest Pain, No Diaphoresis, No Fever/Chills, No Fatigue, No Headache, No Heartburn; Nausea/Vomiting; No Rash, No Shortness of Air, No Swelling/Mass in Abdomen, No Syncope, No Weakness Allergies and Home Medications Allergies Coded Allergies: No Known Drug Allergies (Unverified , 04/26/23) Patient Home Medication List Home Medication List Reviewed: Yes Acetaminophen (Tylenol Extra Strength) 500 Mg Tablet, 1,000 MG PO Q8H PRN for PAIN-MILD (1-4), (Reported) Entered as Reported by: MARY PASCUAL on 04/27/23 1125 Ibuprofen (Ibuprofen) 200 Mg Tablet, 400-600 MG PO Q8H PRN for PAIN-MILD (1-4), (Reported) Entered as Reported by: MARY PASCUAL on 04/27/23 1125 Metoclopramide HCl (Metoclopramide HCl) 10 Mg Tablet, 10 MG PO Q6H PRN for NAUSEA/VOMITING Prescribed by: CLARENCE DYER on 05/08/23 1214 Ondansetron HCl (Ondansetron HCl) 4 Mg Tablet, 4 MG PO Q4H PRN for NAUSEA/VOMITING, (Reported) Entered as Reported by: MARY PASCUAL on 04/27/23 1125 Pantoprazole Sodium (Pantoprazole Sodium) 40 Mg Tablet.dr, 40 MG PO DAILY, (Reported) Entered as Reported by: MARY PASCUAL on 04/27/23 1125 Sucralfate (Carafate) 1 Gram Tablet, 1 GM PO Q6H Prescribed by: CLARENCE DYER on 05/08/23 1214 Review of Systems Review of Systems Constitutional: No chills, No dizziness, No fever EENTM: No Symptoms Reported Respiratory: No Symptoms Reported Cardiovascular: No Symptoms Reported Gastrointestinal: See HPI Genitourinary: Denies Flank Pain, Denies Hematuria, Denies Pain; Other (dark colored urine) Musculoskeletal: no symptoms reported Skin: no symptoms reported Psychiatric/Neurological: No Symptoms Reported Past Etgyqkf-Gtvejp-Oiyoyg Hx Patient Social History Tobacco Use?: Yes Substance use?: No Substance type: Marijuana (history of marijuana and canibis hyperemesis) Immunizations Up To Date First/Initial COVID19 Vaccinat: Not currently vaccinated Second COVID19 Vaccination Koko: Not currently vaccinated Third COVID19 Vaccination Date: Not currently vaccinated Seasonal Allergies Seasonal Allergies: No Past Medical History Surgery/Hospitalization HX: Preeti Surgeries: Yes Gallbladder Respiratory: No Cardiac: No Neurological: No Genitourinary: No Gastrointestinal: Yes (CHRONIC NAUSEA/VOMITING/ABDOMINAL PAIN ) Musculoskeletal: No Endocrine: No HEENT: No Cancer: No Psychosocial: No Integumentary: No Blood Disorders: No Adverse Reaction/Blood Tranf: No Family Medical History No Pertinent Family Hx Physical Exam Vital Signs Vital Signs - First Documented 05/08/23 05/08/23 09:50 12:19 Temp 36.4 Pulse 93 Resp 20 B/P (MAP) 137/95 (109) Pulse Ox 100 O2 Delivery Room Air Capillary Refill : Height/Weight/BMI Height: 5'8.00" Weight: 155lbs. oz. 70.379625hx; 24.16 BMI Method:Stated General Appearance: WD/WN, mild distress (patient is dramatically moaning and groaning at times) HEENT: PERRL/EOMI, pharynx normal Respiratory: chest non-tender, lungs clear, normal breath sounds, no respiratory distress, no accessory muscle use Cardiovascular: normal peripheral pulses, regular rate, rhythm Gastrointestinal: normal bowel sounds, non tender, soft, no pulsatile mass Rectal: deferred Extremities: normal range of motion, non-tender, normal capillary refill Neurologic/Psychiatric: alert, oriented x 3 Skin: warm/dry Progress/Results/Core Measures Results/Orders Lab Results Laboratory Tests Test 05/08/23 09:59 05/08/23 10:01 Range/Units Urine Color DARK YELLOW Urine Clarity TURBID Urine pH 5.0 5-9 Urine Specific Merkel >=1.030 1.016-1.022 Urine Protein 2+ H NEGATIVE Urine Glucose (UA) TRACE H NEGATIVE Urine Ketones TRACE H NEGATIVE Urine Nitrite POSITIVE H NEGATIVE Urine Bilirubin 2+ H NEGATIVE Urine Urobilinogen 1.0 < = 1.0 MG/DL Urine Leukocyte Esterase NEGATIVE NEGATIVE Urine RBC (Auto) TRACE-I H NEGATIVE Urine RBC NONE /HPF Urine WBC NONE /HPF Urine Squamous Epithelial Cells NONE /HPF Urine Crystals PRESENT H /LPF Urine Calcium Oxalate Crystals MODERATE H /LPF Urine Bacteria LARGE H /HPF Urine Casts PRESENT /LPF Urine Hyaline Casts 2-5 H /LPF Urine Mucus NEGATIVE /LPF Urine Culture Indicated YES Urine Opiates Screen NEGATIVE NEGATIVE Urine Oxycodone Screen NEGATIVE NEGATIVE Urine Methadone Screen NEGATIVE NEGATIVE Urine Propoxyphene Screen NEGATIVE NEGATIVE Urine Barbiturates Screen NEGATIVE NEGATIVE Ur Tricyclic Antidepressants Screen NEGATIVE NEGATIVE Urine Phencyclidine Screen NEGATIVE NEGATIVE Urine Amphetamines Screen NEGATIVE NEGATIVE Urine Methamphetamines Screen POSITIVE H NEGATIVE Urine Benzodiazepines Screen NEGATIVE NEGATIVE Urine Cocaine Screen NEGATIVE NEGATIVE Urine Cannabinoids Screen POSITIVE H NEGATIVE White Blood Count 22.3 H 4.3-11.0 10^3/uL Red Blood Count 5.30 4.30-5.52 10^6/uL Hemoglobin 16.2 13.3-17.7 g/dL Hematocrit 48 40-54 % Mean Corpuscular Volume 90 80-99 fL Mean Corpuscular Hemoglobin 31 25-34 pg Mean Corpuscular Hemoglobin Concent 34 32-36 g/dL Red Cell Distribution Width 12.9 10.0-14.5 % Platelet Count 561 H 130-400 10^3/uL Mean Platelet Volume 9.5 9.0-12.2 fL Immature Granulocyte % (Auto) 1 % Neutrophils (%) (Auto) 79 H 42-75 % Lymphocytes (%) (Auto) 11 L 12-44 % Monocytes (%) (Auto) 9 0-12 % Eosinophils (%) (Auto) 0 0-10 % Basophils (%) (Auto) 0 0-10 % Neutrophils # (Auto) 17.5 H 1.8-7.8 10^3/uL Lymphocytes # (Auto) 2.5 1.0-4.0 10^3/uL Monocytes # (Auto) 1.9 H 0.0-1.0 10^3/uL Eosinophils # (Auto) 0.0 0.0-0.3 10^3/uL Basophils # (Auto) 0.1 0.0-0.1 10^3/uL Immature Granulocyte # (Auto) 0.3 H 0.0-0.1 10^3/uL Neutrophils % (Manual) 81 % Lymphocytes % (Manual) 14 % Monocytes % (Manual) 5 % Band Neutrophils % Sodium Level 137 135-145 MMOL/L Potassium Level 4.1 3.6-5.0 MMOL/L Chloride Level 96 L 98-107 MMOL/L Carbon Dioxide Level 20 L 21-32 MMOL/L Anion Gap 21 H 5-14 MMOL/L Blood Urea Nitrogen 15 7-18 MG/DL Creatinine 1.27 0.60-1.30 MG/DL Estimat Glomerular Filtration Rate 72 BUN/Creatinine Ratio 12 Glucose Level 175 H 70-105 MG/DL Calcium Level 11.4 H 8.5-10.1 MG/DL Corrected Calcium 8.5-10.1 MG/DL Total Bilirubin 0.7 0.1-1.0 MG/DL Aspartate Amino Transf (AST/SGOT) 357 H 5-34 U/L Alanine Aminotransferase (ALT/SGPT) 191 H 0-55 U/L Alkaline Phosphatase 96 40-136 U/L Total Protein 9.2 H 6.4-8.2 GM/DL Albumin 5.2 H 3.2-4.5 GM/DL Lipase 52 8-78 U/L Serum Alcohol < 10 <10 MG/DL Smear Scan My Orders Orders - CLARENCE DYER MD Comprehensive Metabolic Panel (05/08/23 10:00) Lipase (05/08/23 10:00) Ua Culture If Indicated (05/08/23 10:00) Ed Iv/Invasive Line Start (05/08/23 10:00) Cbc And Automated Diff (05/08/23 10:00) Drug Screen Stat (Urine) (05/08/23 10:00) Ns Iv 1000 Ml (Ns Iv 1000 Ml) (05/08/23 10:00) Ondansetron Injection (Ondansetron Inj (05/08/23 10:00) Pantoprazole Injection (Pantoprazole Inj (05/08/23 10:00) Dicyclomine Injection (Dicyclomine Injec (05/08/23 10:00) Urine Culture (05/08/23 09:59) Manual Differential (05/08/23 10:01) Alcohol (05/08/23 10:26) Ceftriaxone Iv/Im (Ceftriaxone Iv/Im) (05/08/23 10:42) Ns Iv 1000 Ml (Ns Iv 1000 Ml) (05/08/23 10:42) Metoclopramide Injection (Metoclopramide (05/08/23 10:46) Diphenhydramine Injection (Diphenhydram (05/08/23 11:14) Droperidol Injection (Ed Only) (Droperid (05/08/23 11:14) Lorazepam Injection (Lorazepam Injection (05/08/23 11:14) Medications Given in ED Current Medications Medications Dose Ordered Sig/Patricio Route Start Time Stop Time Status Last Admin Dose Admin Metoclopramide HCl 10 mg STK-MED ONCE .ROUTE 05/08/23 10:46 05/08/23 10:49 DC 05/08/23 10:50 10 MG Vital Signs/I&O 05/08/23 05/08/23 09:50 12:19 Temp 36.4 36.4 Pulse 93 71 Resp 20 17 B/P (MAP) 137/95 (109) 131/72 Pulse Ox 100 O2 Delivery Room Air Room Air Progress Progress Note #1: Progress Note Differential diagnosis of canibis hyperemesis, food poisoning, alcohol gastritis, gastroenteritis, gastritis, GERD. Obtain urine and send for UA and urine drug screen. Patient repeatedly saying he feels he needs fluids. He has had small emesis of saliva here in the ED from when he was forcing himself to gag and throw up. He has previously left AMA with IV in place and used marijuana within the 2 weeks to trigger hyperemesis. Establish peripheral IV access and administer NS 1 L IV fluid bolus, zofran 4 mg IV, Pantoprazole 40 m g IV, Dicyclomine 20 mg IM. Progress Note #2: Time: 10:24 Progress Note Complete blood count shows elevated WBC to 22.3 with 79% Neutrophils and 11% lymphocytes. This is likely more of a stress reaction in addition to some hemoconcentration from dehydration as he is not exhibiting infectious symptoms. Urinalysis is concentrated with specific gravity >1.030, trace glucose and ketones, Nitrites and Large bacteria present for possible UTI as well. Urine drug screen still showing marijuana and it also was positive for methamph etamine. This could be another reason for his nausea and vomiting as well as dehydration. Progress Note #3: Time: 10:39 Progress Note Comprehensive metabolic profile shows Creatinine normal at 1.27 with BUN 15. Lipase is negative for pancreatitis at 52. AST elevated to 357 and ALT to 191. Alcohol level <10. He is asking for ice chips. Will update him on results and can give a dose of antibiotic for nitrites in urine. He stated he has Zofran at home but did not try it this am. The LFTs may be elevated from his vomiting and dehydration. 1114 Reviewed labs and results with patient. He adamantly denies using Methamphetamines or marijuana since earlier this month when he started having problems and was admitted at [facility] and [facility]. He is taking some ice chips but still gagging himself at times, especially when he lays back. From sandie chen of his records when he was seen at [place] he had a CT scan that showed thickening of the distal esophagus concerning for gastritis/GERD. Patient states he is not taking any prescription meds at home. Order Inapsine 2.5 mg IV, Ativan 1 mg IV, Benadryl 25 mg IV to try and settle his stomach further as he likely still has some canabis in his system and possible gastritis/GERD. Progress Note #4: Time: 12:15 Progress Note resting comfortably after last round of medicines and tolerated oral intake without emesis. Will discharge with script for reglan and carafate and encouraged to follow liquid diet until stomach better then use gastritis and ulcer diet. check with clinic to establish care and follow up. Departure Impression Primary Impression: Nausea and vomiting in adult Disposition: 01 HOME, SELF-CARE Condition: Improved Departure-Patient Inst. Decision time for Depature: 12:12 Referrals: NO,LOCAL PHYSICIAN (PCP) Primary Care Physician [facility] Patient Instructions: CLEAR LIQUID DIET ADULT/CHILD, Full Liquid Diet, Gastritis ED, Nausea and Vomiting, Adult ED, Ulcer and Gastritis Diet Add. Discharge Instructions: Follow a liquid diet for 24 hours and use the dissolving Zofran nausea medicine to help keep your stomach settled. Continue to avoid using any drugs or alcohol as they can trigger further nausea and vomiting. [facility] by calling [phone] for continued care. Scripts Sucralfate (Carafate) 1 Gram Tablet 1 GM PO Q6H for Gastritis for 14 Days, #56 TAB 0 Refills Prov: CLARENCE DYER MD 05/08/23 Metoclopramide HCl (Metoclopramide HCl) 10 Mg Tablet 10 MG PO Q6H PRN for NAUSEA/VOMITING for 5 Days, #20 TAB 0 Refills Prov: CLARENCE DYER MD 05/08/23 CLARENCE DYER MD May 08, 2023 10:11
[2023-05-08 10:13] LABS: BACTERIA,URINE LARGE /HPF; BILIRUBIN,URINE 2+ (NEGATIVE); CLARITY,URINE TURBID; COLOR,URINE DARK YELLOW
[2023-05-08 10:14] LABS: CALCIUM OXALATE CRYSTALS,UR MODERATE /LPF
[2023-05-08 10:17] LABS: CANNABINOID SCREEN, URINE POSITIVE (NEGATIVE)
[2023-05-08 10:18] LABS: AMPHETAMINE SCREEN, URINE NEGATIVE (NEGATIVE); BARBITURATE SCREEN URINE NEGATIVE (NEGATIVE); COCAINE SCREEN URINE NEGATIVE (NEGATIVE); METHADONE STAT NEGATIVE (NEGATIVE); OPIATE SCREEN URINE NEGATIVE (NEGATIVE); OXYCODONE STAT NEGATIVE (NEGATIVE); PROPOXYPHENE STAT NEGATIVE (NEGATIVE); TRICYCLIC ANTIDEPRESSANTS SCRE NEGATIVE (NEGATIVE)
[2023-05-08 10:25] LABS: CHLORIDE 96 MMOL/L (98-107); POTASSIUM 4.1 MMOL/L (3.6-5.0); SODIUM 137 MMOL/L (135-145)
[2023-05-08 10:26] LABS: BILIRUBIN,TOTAL 0.7 MG/DL (0.1-1.0); CALCIUM 11.4 MG/DL (8.5-10.1); CARBON DIOXIDE 20 MMOL/L (21-32); LIPASE 52 U/L (8-78); TOTAL PROTEIN 9.2 GM/DL (6.4-8.2)
[2023-05-08 10:27] LABS: GLUCOSE 175 MG/DL (70-105)
[2023-05-08 10:29] LABS: ALANINE AMINOTRANSFERASE 191 U/L (0-55); ALBUMIN 5.2 GM/DL (3.2-4.5); ALKALINE PHOSPHATASE 96 U/L (40-136); BUN/CREATININE RATIO 12; CREATININE SERUM 1.27 MG/DL (0.60-1.30); GFR ESTIMATED 72
[2023-05-08] MEDS ORDERED: NS IV 1000 ML 1,000 ML IV STA (10:42)
[2023-05-08] MEDS ORDERED: cefTRIAXone IV/IM 1,000 MG in NS (IVPB) 50 ML 50 ML IV STA (10:42)
[2023-05-08] MEDS ORDERED: METOCLOPRAMIDE INJ 10 MG/2 ML ONE (10:46)
[2023-05-08 11:13] LABS: NEUTROPHILS % (MANUAL) 81 %
[2023-05-08 11:14] LABS: LYMPHOCYTES % (MANUAL) 14 %; MONOCYTES % (MANUAL) 5 %
[2023-05-08] MEDS ORDERED: DroPERidol INJECTION 5 MG/2 ML (ED ONLY!) IV STA (11:14)
[2023-05-08] MEDS ORDERED: diphenhydrAMINE INJ 50 MG/ML VIAL IVP STA (11:14)
[2023-05-08] MEDS ORDERED: SUCR1TAB36 PO (12:14)
[2023-05-08] MEDS ORDERED: MTC10T PO (12:14)
[2023-05-08 12:19] VITALS: BP 131/72
== END 2023-05-08 12:19 | disposition home or self-care (01) ==
LOC: EDUNIT# 09:46 → ER FS 09:47
DX: R11.2 Nausea with vomiting, unspecified (principal); D72.829 Elevated white blood cell count, unspecified; R74.01 Elevation of levels of liver transaminase levels
CPT/HCPCS: 36415; 80053; 80306; 81000; 83690; 85007; 85027; 87088; 99284; G0480; 80320